=== PATIENT | female | born 1925 | race Caucasian/White ===

== ENCOUNTER 2016-10-28 09:49 | Inpatient (IN) | payer MEDICARE, OTHER ==
[~2016-10-28] VITALS: Ht 157.5 cm; Wt 53.2 kg
[2016-10-28 09:50] VITALS: BP 179/118; PULSE 59; RESP 14; O2SAT 98
--- NOTE | 2016-10-28 09:51 | ED.REPORT ---
HPI-Extremity Problem Lower Date of Service Oct 28, 2016 ED Provider: Dr. Wong Pt is an 89 year old female with a hx of acid reflux, anemia, afib, spinal stenosis and PE presenting to the ED via EMS complaining of 10/10 right hip pain after falling in the shower just prior to arrival. Denies any head injury, LOC, abdominal pain, or any other symptoms at this time. She states that she had a fall a few days ago, and had an x ray that did not show any fracture. Nursing Notes Stated Complaint: HIP PAIN Chief Complaint: Extremity Trauma Nursing Notes Reviewed: Yes Allergies: Coded Allergies: phenytoin (Unverified Allergy, Mild, Unknown, 10/28/16) levetiracetam (Unverified Allergy, Unknown, Unknown, 10/28/16) metronidazole (Unverified Allergy, Unknown, Unknown, 10/28/16) General Time Seen by MD: 09:51 Chief Complaint Hip injury right Hx Obtained From: Patient, EMS Arrived By: Ambulance Onset Occurred: Just prior to arrival Symptom Duration: Since onset Caused by: Fall on ground, Slipped Location: : Hip right Quality: Painful Severity: Current: Pain level 10 out of 10 Severity: Maximum: Severe Associated with: Denies: Abdominal pain Recent Healthcare: No recent hospitalization, Recent doctor visit Similar Sx Previous: Yes Past Medical History Past Medical History acid reflux, anemia, on a Fentanyl patch, Spinal stenosis, PE, afib, ulcerative colitis Past Surgical History denies Smoking History Unknown if Ever Smoker Social History Other Social History: Lives in [facility] Ambulatory Status Independent Review of Systems Constitutional: Denies: Weakness - generalized Musculoskeletal: Reports: Joint pain (Right hip) Neurologic: Denies: Change LOC, Headache Complete sys rev & neg: except as marked. Respiratory: Denies: Shortness of breath Cardiovascular: Denies: Chest pain GI: Denies: Abdominal pain Physical Exam Initial Vital Signs Vital Signs (First) Date Time Temp Pulse Resp B/P Pulse Ox O2 Delivery O2 Flow Rate FiO2 10/28/16 09:50 36.5 59 14 179/118 98 Room Air Initial VS: Reviewed General/Constitutional: Well-developed, Well-nourished Head / Eyes: Atraumatic, Normocephalic, PERRL ENT: Mucous membranes moist, Conjunctiva normal, No scleral icterus Respiratory: Breath sounds normal, Clear to auscultation, No respiratory distress Cardiovascular: Regular rate & rhythm, Heart sounds normal, Intact distal pulses Abdomen / GI: Soft, Non-tender, No guarding, No rebound, No distention Upper Extremities: Vascular intact, Neuro intact, No swelling, No tenderness Skin: Warm, Dry, No cyanosis Neurologic: Alert, Oriented, Nonfocal Psychiatric: Mood/affect normal, Behavior normal, Normal thought content Lower Extremity / Pelvis / MS: Neurologic intact, Vascular intact Right hip tenderness with axial rotation. 2+ dorsalis pedis pulses. Right leg shortened and flexed. Interpretation & Diagnostics Lab Results Interpretation Result Diagram: 10/28/16 1200 10/28/16 1200 Test 10/28/16 12:00 10/28/16 12:50 White Blood Count 6.0th/mm3 (3.8-10.1) Red Blood Count 3.59mil/mm3 (3.90-5.20) Hemoglobin 11.4g/dL (12.0-15.6) Hematocrit 34.5% (35.0-46.0) Mean Corpuscular Volume 96.1fL (81-100) Mean Corpuscular Hemoglobin 31.8pg (27.0-35.0) Mean Corpuscular Hemoglobin Concent 33.0% (32.0-37.0) Red Cell Distribution Width 16.9% (12.3-15.4) Platelet Count 255bil/L (150-400) Neutrophils (%) (Auto) 79.1% (40-74) Lymphocytes (%) (Auto) 9.4% (14-46) Monocytes (%) (Auto) 9.8% (4-12) Eosinophils (%) (Auto) 1.0% (0-5) Basophils (%) (Auto) 0.7% (0-3) Sodium Level 139mEq/L (134-144) Potassium Level 4.5mEq/L (3.5-5.2) Chloride Level 106mEq/L (97-108) Carbon Dioxide Level 20mmol/L (18-29) Blood Urea Nitrogen 17mg/dL (8-27) Creatinine 0.74mg/dL (0.57-1.00) Estimat Glomerular Filtration Rate 106mL/min (>59) Glucose Level 116mg/dL (60-99) Calcium Level 9.4mg/dL (8.5-10.1) Total Bilirubin 0.6mg/dL (0.0-1.2) Aspartate Amino Transf (AST/SGOT) 17U/L (0-50) Alanine Aminotransferase (ALT/SGPT) 11U/L (0-32) Alkaline Phosphatase 71U/L (25-165) Total Protein 6.1g/dL (6.4-8.4) Albumin 3.1g/dL (3.4-5.0) ECG Interpretation Time: 13:03 Interpreted by: ED physician Normal ECG Interpretation: Normal ECG w/ rate of... (63), Normal sinus rhythm X-Ray Chest Interpretation Chest Xray Interpretation: IMPRESSION: 2 cm, poorly defined rounded opacity projecting in the right lung base, indeterminate. Recommend PA and lateral chest radiographs to assess the possibility of pulmonary nodule, when clinically feasible, or at clinical discretion, noncontrast chest CT could be performed. Dictated by: Vinnie Moon M.D. on 10/28/2016 at 11:32 IMPRESSION: Small area of atelectasis or infiltrate in the right lower lobe medially. Lungs otherwise clear. Dictated by: Amado Melendrez M.D. on 10/28/2016 at 12:07 View: Portable, 1 view Interpretation / Wet Read by: Interpret - Radiologist X-Ray Interpretation Xray Interpretation: XRAY PELVIS WITH LATERAL HIP: IMPRESSION: Acute right hip fracture, intertrochanteric. Dictated by: Jorge Rey M.D. on 10/28/2016 at 11:35 X-Ray Ordered: Pelvis, Hip right Interpretation / Wet Read by: Interpret - Radiologist Re-Eval/Medical Decision Med Decision/Clinical Course Right intertrochanteric femur fracture. Will be admitted. Re-Evaluation/Progress : Time of Eval: 11:38 Patient Status: Condition improved Re-Evaluation/Progress Note: Discussed radiology results and plan for admission and surgery. Pt understands and agrees with plan. Consultation #1: Referral / Consult Name: Elroy Finney MD Consulted With: Orthopedic Call Returned at: 12:15 [employer] Consultant: Agrees with plan Note: NPO after midnight. Consultation #2: Referral / Consult Name: Rodney Higuera MD Consulted With: Hospitalist Call Returned at: 12:37 [employer] Consultant: Will see patient, Agrees with plan, Accepts admit Counseled Regarding: Diagnosis, Lab results, Need for follow-up, When/why to return to ED Discharge & Departure Impression: Primary Impression: Hip fracture, right Encounter type: initial encounter Fracture type: closed Qualified Code: S72.001A - Fracture of unspecified part of neck of right femur, initial encounter for closed fracture Disposition: ADMITTED TO HOSPITAL Discharge Condition All VS Reviewed: Yes Condition: Improved Referrals: Darya Baker (PCP) Teoibcele Attestation Portions of this note were transcribed by Melly Valdez. I, Dr. Wong personally performed the history, physical exam and medical decision-making; I reviewed and confirmed the accuracy of the information in the transcribed note. Signed by: Dell Campos, 10/28/16 at 1300. copies to: Darya Baker Timothy S DO Oct 28, 2016 09:51 MELLY VALDEZ Oct 28, 2016 09:59
--- NOTE | 2016-10-28 11:37 | DRSVH ---
PROCEDURE: X-RAY PELVIS W/LAT HIP (RT) ([id number]) INDICATIONS: fall, hip pain TECHNIQUE: AP pelvis with lateral view(s) of the right hip. COMPARISON: None. FINDINGS: Bones: No dislocations. Pelvic ring appears intact. No suspicious bony lesions. There is an acute appearing intertrochanteric right hip fracture Soft tissues: The visualized bowel gas pattern is normal. No suspicious soft tissue calcifications. IMPRESSION: Acute right hip fracture, intertrochanteric. Dictated by: Jorge Rey M.D. on 10/28/2016 at 11:35 Approved by: Jorge Rey M.D. on 10/28/2016 at 11:36
--- NOTE | 2016-10-28 11:39 | DRSVH ---
PROCEDURE: X-RAY CHEST ONE VIEW ([id number]) INDICATIONS: FELL TODAY; HIP FRACTURE PREOPERATIVE TECHNIQUE: One view of the chest was acquired. COMPARISON: [facility], CR, XR CHEST 2V AP/PA AND LAT, 02/20/2016, 5:54 PM. FINDINGS: Surgical changes and devices: None. Lungs and pleura: No pleural effusions or pneumothorax. 2 cm rounded opacity projects in the right l michael base, indeterminate. Mild scarring/atelectasis. Mediastinum: Mediastinal contours appear normal. Heart size is normal. Bones and chest wall: No suspicious bony lesions. Levocurvature of the spine. Overlying soft tissue s appear unremarkable. IMPRESSION: 2 cm, poorly defined rounded opacity projecting in the right lung base, indeterminate. Re commend PA and lateral chest radiographs to assess the possibility of pulmonary nodule, when clinical ly feasible, or at clinical discretion, noncontrast chest CT could be performed. Dictated by: Vinnie Moon M.D. on 10/28/2016 at 11:32 Approved by: Vinnie Moon M.D. on 10/28/2016 at 11:37
--- NOTE | 2016-10-28 12:12 | DRSVH ---
PROCEDURE: X-RAY CHEST ONE VIEW, PORTABLE ([id number]) INDICATIONS: preop TECHNIQUE: One view of the chest was acquired.-1138 hrs. COMPARISON: 10/28/2016-1117 hrs.; Chest 02/20/2016 FINDINGS: Surgical changes and devices: None. Lungs and pleura: No pleural effusions or pneumothorax. Small area of pulmonary density at the right base medially is unchanged. There may be minimal fluid along the right major fissure versus skinfold . Mediastinum: Mediastinal contours appear normal. Heart size is normal. Tortuous aorta. Bones and chest wall: No suspicious bony lesions. Overlying soft tissues appear unremarkable. IMPRESSION: Small area of atelectasis or infiltrate in the right lower lobe medially. Lungs otherwise clear. Dictated by: Amado Melendrez M.D. on 10/28/2016 at 12:07 Approved by: Amado Melendrez M.D. on 10/28/2016 at 12:10
[2016-10-28 12:13] LABS: BASOPHILS % (AUTO) 0.7 % (0-3); MONOCYTES % (AUTO) 9.8 % (4-12); Mean Corpuscular Hemoglobin 31.8 pg (27.0-35.0); Mean Corpuscular Volume 96.1 fL (81-100); NEUTROPHILS % (AUTO) 79.1 % (40-74); Platelet Count 255 bil/L (150-400)
[2016-10-28] MEDS ORDERED: Heparin 5,000 Unit/mL Inj SUBQ ONE (12:40)
[2016-10-28] MEDS ORDERED: Polyethylene Glycol (PEG) 17 Gm Powder PO PRN (12:40)
[2016-10-28] MEDS ORDERED: Alum-Mag Hydrox-Simeth 30 mL Suspension PO PRN ×2 (12:40→12:50)
[2016-10-28] MEDS ORDERED: Ondansetron 2 mg/mL 2 mL Inj IVPUSH PRN ×2 (12:40→12:50)
[2016-10-28 12:56] VITALS: BP 138/91; PULSE 88; RESP 16; O2SAT 99
--- NOTE | 2016-10-28 13:08 | DRSVH ---
PROCEDURE: X-RAY RIGHT FEMUR, TWO VIEWS ([id number]) INDICATIONS: preop ap/lat femur, ap hip TECHNIQUE: 3 views of the femur were acquired. COMPARISON: Pelvis and right hip 10/28/2016-T11 04 hours FINDINGS: Bones: Intertrochanteric fracture of the right hip with varus angulation deformity is again noted. Sh aft of the femur is intact distally. Proximal tibia and fibula as seen appear intact. Soft tissues: No suspicious soft tissue calcifications or masses. IMPRESSION: Acute right hip fracture. Distal shaft is intact. Dictated by: Amado Melendrez M.D. on 10/28/2016 at 13:04 Approved by: Amado Melendrez M.D. on 10/28/2016 at 13:06
[2016-10-28] MEDS ORDERED: AZTH50T PO (13:12)
[2016-10-28] MEDS ORDERED: FENT1PAT6 TRANSDERM (13:12)
[2016-10-28] MEDS ORDERED: OMEP20CA11 PO (13:13)
[2016-10-28] MEDS ORDERED: VIT1CAPS46 PO (13:14)
[2016-10-28] MEDS ORDERED: CHOL200047 PO (13:15)
[2016-10-28] MEDS ORDERED: FEG324 PO (13:17)
[2016-10-28 13:18] LABS: APPEARANCE,URINE HAZY (CLEAR,HAZY); COLOR,URINE STRAW (YELLOW); OCCULT BLOOD,URINE SMALL (NEGATIVE); PH,URINE 7.5 (5.0-8.0)
[2016-10-28 13:19] LABS: UROBILINOGEN,URINE NORMAL (NORMAL)
[2016-10-28] MEDS ORDERED: BIFI4CAP PO (13:21)
[2016-10-28] MEDS ORDERED: LOPE2CAP PO (13:23)
[2016-10-28] MEDS ORDERED: CLOT15CR5 TOPICAL (13:23)
[2016-10-28] MEDS ORDERED: ACET325C PO (13:24)
[2016-10-28] MEDS ORDERED: TETR15DR77 OP (13:28)
[2016-10-28] MEDS ORDERED: VEDO300V IV (13:29)
[2016-10-28 13:35] VITALS: BP 138/91; PULSE 88; RESP 16; O2SAT 99
[2016-10-28 13:57] VITALS: BP 164/62; PULSE 80; RESP 18; O2SAT 94
--- NOTE | 2016-10-28 14:03 | NUR ---
Admit To [facility] via stretcher from ER at 13:35. Report received from Jody. Alert and oriented x3. Family at bedside. R leg shorted and turned out, see ortho checks. Denies pain at rest, but 3/10 on FELDT scale with movement. Admit nurse at bedside completing admit, including med rec.
[2016-10-28] MEDS: fentaNYL-PF 50 mCg/mL 2 mL Inj IV PRN ×2 (14:23→22:35)
[2016-10-28] MEDS: D5 0.45% NaCl + KCl 20 mEq/L 1,000 ML IV SCH (14:47)
[2016-10-28 14:52] VITALS: PULSE 83
--- NOTE | 2016-10-28 15:31 | NUR ---
Evaluation completed. Please go to "Notes" then click on "Assessments and Notes" (bottom left corner of screen). Then select appropriate discipline tab on top of screen.
[2016-10-28] MEDS ORDERED: [UNRECOGNIZED DRUG - REMARK] SCH (15:55)
[2016-10-28] MEDS ORDERED: Betameth Dip-Clotrimazole 15 Gm Cream TOPICAL PRN (15:55)
[2016-10-28] MEDS: Lactobacillus Rhamnosus 10 Bil Unit Capsule PO SCH (16:57)
[2016-10-28] MEDS: Acetaminophen IV 1,000 MG in IV Premix 1 EACH IV PRN ×2 (16:58→23:52)
--- NOTE | 2016-10-28 17:00 | PCM.HPMED ---
Subjective Date of Service Oct 28, 2016 Primary Provider: Admitting Physician: Rodney Higuera MD Primary Care Physician: Hakeem Carcamo MD Attending Physician: Rodney Higuera MD Admit Status: From the Emergency Department, Admit to Red Team Chief Complaint: Right hip pain History of Present Illness: The patient is a very pleasant 89-year-old white female with history of gastroesophageal reflux, ulcerative colitis with history of GI bleed on warfarin which was prescribed for bilateral pulmonary emboli in the past. Patient completed 6 months of treatment with warfarin. She was in her usual state of health living at the [facility] when she fell in the bathroom. She apparently was getting her weekly shower and then she said she was on the toilet after getting up from the toilet she turned and then fell onto the floor. She complained of severe pain in her right hip and was brought to [facility] emergency room where she was evaluated by Dr. Rustam Galeas. Patient was found to have an intertrochanteric right hip fracture and Dr. Wong called Dr. Finney the orthopedic surgeon rent control office manager who recommended that the patient be admitted to the hospitalist service and that she would operate on the patient in the morning. Patient was therefore admitted to the hospital service for further evaluation and treatment. Review of Systems: General: Patient is comfortable when lying still. However, with any movement she experiences severe pain in her right hip. HEENT: Patient has no headache, patient has no diplopia, patient has no changes in vision. Patient has no problems with her ears, nose or throat. Patient has no pharyngitis or history of thrush. Patient has her own teeth and has no dental problems. Neck: Patient has no stiffness in the neck. Patient has no lymphadenopathy. Patient has no other problems with their neck. Pulmonary: Patient has no shortness of breath, no cough, no expectoration of sputum. Patient has no pleurisy. Patient has no chest pain. Patient has no history of asthma or COPD. however, patient had pulmonary emboli after being diagnosed with ulcerative colitis which caused her to be more sedentary. 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 Prior to the pulmonary emboli a few years ago she was very independent and very active. Cardiovascular: Patient has no chest pain. Patient has no history of heart murmur. Patient has no palpitations. Patient has no history of myocardial infarction. Patient has no history of coronary artery disease. Patient has never had atrial fibrillation which her medical record suggests. Her daughter a few would like the history of A. fib removed from her medical record as she has never had atrial fibrillation. Gastrointestinal: Patient has no history of hepatitis A, B or C per recent testing. However she does remember having jaundice in the past and in talking to her and the patient's daughter Gardenia thought that maybe she did have hepatitis A in the past. In any event patient has had vaccinations for hepatitis A I will updated due to her use of Remicade in the past. Patient has no history of peptic ulcer disease. Patient has history of gastroesophageal reflux disease. Patient has no history of nausea, vomiting, or diarrhea. Patient has a history of ulcerative colitis diagnosed approximately 2 years ago and she is currently being treated by Dr. Bocanegra(sp?) A hematology technologist in [place], [place]. She has been on multiple "expensive" medications and according to her daughter has failed Remicade and is now doing well on and Entyvio. Patient had a GI bleed when she was on Coumadin for pulmonary emboli. Renal: Patient has no history of kidney disease. No history of kidney stones. Genitourinary: Patient has no history of dysuria or incontinence, however she does have frequency with nocturia sometimes as much as 5 times at night. Patient has no previous history of genitourinary problems. Musculoskeletal: Patient has no history of muscular skeletal problems. Neurologic: Patient has no history of stroke, no history of seizure, no history of TIA. Psychiatric: Patient has no history of psychiatric problems. The remainder of the entire review of systems was reviewed with patient and is as mentioned above otherwise negative. Allergies Coded Allergies: phenytoin (Unverified Allergy, Mild, Unknown, 10/28/16) levetiracetam (Unverified Allergy, Unknown, Unknown, 10/28/16) metronidazole (Unverified Allergy, Unknown, Unknown, 10/28/16) Home Medications Entyvio 300 mg IV every 8 weeks Azathioprine 150 mg by mouth daily Tylenol when necessary Align probiotics by mouth daily Vitamin D by mouth daily PreserVision vitamin by mouth daily Omeprazole 20 mg by mouth daily Fentanyl patch 4.5 g transdermal every 72 hours PMH Gastroesophageal reflux disease Ulcerative colitis diagnosed approximately 2 years ago which was quite debilitating and caused her to be more sedentary Pulmonary emboli after ulcerative colitis diagnosis which was bilateral and severely disabling with a long recovery. 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 History of lumbar vertebral fracture with possible spinal stenosis and chronic pain treated with a fentanyl patch Patient and daughter Tangela denied that the patient has ever had atrial fibrillation Patient had sepsis in February 2016 secondary to urinary tract infection and was hospitalized for 5 days at another hospital. Patient had a history of C. difficile colitis 5 years ago. Patient believes she had hepatitis possibly from hepatitis A but tested negative prior to receiving Remicade and received vaccines for hepatitis prior to his receiving Remicade. History of GI bleeding on warfarin which was being given for bilateral pulmonary emboli. Osteoporosis. Surgical History Bilateral cataract surgery with lens replacement. 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 Patient had a broken collarbone but does not believe that it was operated on Family History Patient's father of a "heart attack" in his 70s Patient's mother in her 70s as well she had multiple medical problems which included multiple strokes, epilepsy and asthma Patient had 3 brothers. One is still alive and well, one of an ear infection which led to meningitis, one unknown causes. Patient had 3 sisters. One of pulmonary emboli and one of cancer and the other is alive and presumably well. Patient had 4 children and her fourth was a boy who committed suicide at the age of 46. Social History Hx Alcohol Use: Yes (The patient used to like to drink a glass of wine now and then. However, she quit when she was diagnosed with ulcerative colitis.) Hx Substance Use: No Hx Tobacco Use: Yes Smoking Status: Former Smoker (The patient used to smoke 2-3 cigarettes a day but quit in the 1970s.) Living Arrangement: Custodial (The patient lives at [facility]) Exam Vital Signs Vital Sign - Last Date Time Temp Pulse Resp B/P Pulse Ox O2 Delivery O2 Flow Rate FiO2 10/28/16 14:55 Supplement Oxygen 10/28/16 14:52 83 10/28/16 13:57 36.7 18 164/62 94 Exam General: Patient is in no distress when she is lying still. However with any movement she has excruciating pain in her right hip. HEENT: Head is atraumatic and normocephalic. Eyes: Pupils are equally round and reactive to light and accommodation. Extraocular muscles are intact. Sclera are white, anicteric. Subconjunctival mucosa is pink. Ears and nose are unremarkable. Oropharynx: There is no mucosal lesions, there is no thrush, there is no pharyngitis. Oral mucosa is dry. Neck: Is supple, there are no nodes, or masses or tenderness. Chest: Is clear to auscultation and percussion. There are no rales, rhonchi, wheezes or rubs. Heart: Rate, rhythm is regular. There is no murmur, rub or gallop. Abdomen: Good bowel sounds are present. Abdomen is soft, nontender, no organomegaly or masses were appreciated. Extremities: Are symmetrical and well perfused. There is no edema, there is no cellulitis, no rash. Range of motion was not tested in fact patient did not even want me to remove her sock on her right foot as it was too painful to even move her foot that much causing pain in her right hip. Neurologic: There are no apparent focal neurological deficits. However, right lower extremity neurologic assessment could not be performed due to patient's pain with any movement. Cranial nerves II through XII are intact. There are no apparent sensory or motor deficits. Psychiatric: Patients mood is calm and shows no sign of agitation. Genital: Deferred Rectal: Deferred Lab and Diagnostics Result Diagram: 10/28/16 1200 10/28/16 1200 X-Rays, CTs and MRIs PROCEDURE: X-RAY RIGHT FEMUR, TWO VIEWS ([id number]) INDICATIONS: preop ap/lat femur, ap hip TECHNIQUE: 3 views of the femur were acquired. COMPARISON: Pelvis and right hip 10/28/2016-T11 04 hours FINDINGS: Bones: Intertrochanteric fracture of the right hip with varus angulation deformity is again noted. Shaft of the femur is intact distally. Proximal tibia and fibula as seen appear intact. Soft tissues: No suspicious soft tissue calcifications or masses. IMPRESSION: Acute right hip fracture. Distal shaft is intact. Dictated by: Amado Melendrez M.D. on 10/28/2016 at 13:04 Approved by: Amado Melendrez M.D. on 10/28/2016 at 13:06 PROCEDURE: X-RAY CHEST ONE VIEW, PORTABLE ([id number]) INDICATIONS: preop TECHNIQUE: One view of the chest was acquired.-1138 hrs. COMPARISON: 10/28/2016-1117 hrs.; Chest 02/20/2016 FINDINGS: Surgical changes and devices: None. Lungs and pleura: No pleural effusions or pneumothorax. Small area of pulmonary density at the right base medially is unchanged. There may be minimal fluid along the right major fissure versus skinfold. Mediastinum: Mediastinal contours appear normal. Heart size is normal. Tortuous aorta. Bones and chest wall: No suspicious bony lesions. Overlying soft tissues appear unremarkable. IMPRESSION: Small area of atelectasis or infiltrate in the right lower lobe medially. Lungs otherwise clear. Dictated by: Amado Melendrez M.D. on 10/28/2016 at 12:07 Approved by: Amado Melendrez M.D. on 10/28/2016 at 12:10 PROCEDURE: X-RAY PELVIS W/LAT HIP (RT) ([id number]) INDICATIONS: fall, hip pain TECHNIQUE: AP pelvis with lateral view(s) of the right hip. COMPARISON: None. FINDINGS: Bones: No dislocations. Pelvic ring appears intact. No suspicious bony lesions. There is an acute appearing intertrochanteric right hip fracture Soft tissues: The visualized bowel gas pattern is normal. No suspicious soft tissue calcifications. IMPRESSION: Acute right hip fracture, intertrochanteric. Dictated by: Jorge Rey M.D. on 10/28/2016 at 11:35 Approved by: Jorge Rey M.D. on 10/28/2016 at 11:36 Assessment & Plan The patient is a very pleasant 89-year-old white female with history of gastroesophageal reflux, ulcerative colitis with history of GI bleed on warfarin which was prescribed for bilateral pulmonary emboli in the past. Patient completed 6 months of treatment with warfarin. She was in her usual state of health living at the [facility] adult home when she fell in the bathroom. She apparently was getting her weekly shower and then she said she was on the toilet after getting up from the toilet she turned and then fell onto the floor. She complained of severe pain in her right hip and was brought to [facility] emergency room where she was evaluated by Dr. Rustam Galeas. Patient was found to have an intertrochanteric right hip fracture and Dr. Wong called Dr. Finney the orthopedic surgeon rent control office manager who recommended that the patient be admitted to the hospitalist service and that she would operate on the patient in the morning. Patient was therefore admitted to the hospital service for further evaluation and treatment. # Right hip fracture, present at the time of admission. Active - Dr. Finney of orthopedic surgery has been contacted by Dr. Patrick Wong and stated that she would operate on the patient in a.m. and to make the patient nothing by mouth after midnight. - Pain control with fentanyl or morphine and Tylenol as needed. - The patient has never had atrial fibrillation and this should be removed from her record according to her 2 daughters. In fact she has never had any cardiac problems in the past. - Bedrest until surgery. Then after surgery I have ordered a consult to physical therapy, occupational therapy and speech therapy for their evaluation and treatment recommendations. # Ulcerative colitis, present at the time of admission. Active but stable - Continue azathioprine - Continue Entyvio as an outpatient - Continue probiotics # History gastroesophageal reflux disease, present times admission. Stable - Continue proton pump inhibitor - Close observation # History of pulmonary emboli status post treatment with warfarin for 6 months - We will give 1 dose of heparin this afternoon preoperatively. - Postoperatively DVT prophylaxis will be per orthopedic surgery. - Of note patient had a GI bleed on warfarin. However, her ulcerative colitis was not controlled at that time. Now her ulcerative colitis appears to be well controlled with Entyvia. Disposition: As patient will be admitted for more than 2 midnight for the evaluation and treatment of the above conditions, patient was admitted as an inpatient. Pain Evaluation: Adequate Pain Control GI Prophylaxis: Proton Pump Inhibitor VTE Prophylaxis: Sub-Q Heparin (Unfractionated) VTE Mechanical Devices: Intermittant Pneumatic CD Resuscitation Status: CPR: Attempt Resuscitation DavidaRodney MD Oct 28, 2016 17:00
[2016-10-28 20:00] VITALS: BP 100/55; PULSE 75; PULSE 79; RESP 17; O2SAT 94
[2016-10-29] VITALS (14 sets, daily range): BP systolic 110–178; BP diastolic 60–80; PULSE 54–84; RESP 12–20; O2SAT 92–99
--- NOTE | 2016-10-29 01:42 | NUR ---
Activity/Pain Patient rating pain to right hip a 5/10 at beginning of shift. Stated this was tolerable and refused offer for pain medications. Pt being repositioned in bed [id number]. Notable increase in pain level with latest repositioning, rating pain to hip a 10/10. Fentanyl 50 mcg IVP given with somewhat effective results. Rated pain 8/10 with reassessment. IV Acetaminophen given with effective results, noted to be resting with eyes closed upon reassessment. Made NPO at midnight in preparation of surgery.
--- NOTE | 2016-10-29 02:51 | CONS ---
[address] [address] CONSULTATION REPORT PATIENT: MERRY TRAN : 1925 MR#: [id number] ADMIT: 10/28/2016 JOB ID: [id number] DATE OF SERVICE: ORTHOPEDIC INPATIENT CONSULTATION: CPT code 70959-90, decision for surgery. CHIEF COMPLAINT: This is an 89-year-old female who lives at an adult family home, tripped and fell in the bathroom sustaining a right intertrochanteric femoral fracture. The patient was on the toilet, getting up from the toilet she turned and fell on the floor. There was no obvious loss of consciousness. ALLERGIES: 1. DILANTIN. 2. METRONIDAZOLE. 3. LEVETIRACETAM. CURRENT MEDICATIONS: Include: Entyvio, azathioprine, Tylenol, vitamin D, PreserVision, omeprazole and fentanyl patch. PAST MEDICAL HISTORY: Positive for gastroesophageal reflux, prior pulmonary emboli after ulcerative colitis diagnosis and prolonged recovery, history of some senile dementia. Prior history of GI bleeding while on Coumadin in the past. PRIOR SURGERY: Bilateral cataract surgeries, appendectomy, total abdominal hysterectomy, vaginal floor repair, right long finger tip amputation, right clavicle fracture. FAMILY HISTORY: Positive for MS, strokes and epilepsy. SOCIAL HISTORY: The patient used to drink occasionally, however, she no longer drinks. Former smoker, quit in the . REVIEW OF SYSTEMS: Is pertinent at this time for pain in the right hip status post fall. PHYSICAL EXAMINATION: A 157 cm, 51 kg female. Temperature is 36.4, pulse of 79, respirations 17, blood pressure 100/55. Patient is lying in bed. She does have some senile dementia and short-term memory loss. She is, however, able to carry on a conversation. Right leg is shortened and externally rotated. Peripheral pulses are intact. The patient is able to move her foot. The patient is thin. No abrasions over the hip. LABORATORY TESTING: Shows hematocrit of 34.5, hemoglobin 11.4, white count 6000, platelet count adequate at 255,000; 79.1% PMNs. Sodium 139, potassium 4.5, chloride 106, CO2 20, BUN 17, creatinine 0.74. Glucose random at 116. Total protein low at 6.1. Albumin low at 3.1. Urinalysis: Specific gravity of 1.015, pH of 7.5; 0-5 white cells and no bacteria seen. X-rays show that she has a displaced right intertrochanteric femoral fracture with a slight area of comminution of the tip of the greater trochanter. X-rays were also ordered down to the knee and there were no other fractures or abnormalities noted distally. IMPRESSION: Displaced right intertrochanteric femoral fracture. PLAN: The patient will be scheduled for open reduction and internal fixation of the fracture. I have discussed the risks and benefits of surgery with the daughter who has power of health care attorney. She is aware of the risks for bleeding, infection, pain and stiffness, possibility for damage to surrounding neurovascular structures, potential for delayed union, nonunion, malunion, and hardware failure. Daughter will need to sign surgical consent tomorrow and she will also need to sign anesthesia consent. Dr. Lucius Cuellar is going to be covering tomorrow and he will plan to speak with the daughter and plan for surgical intervention tomorrow with an IM alfreda for the hip fracture. I have indicated to the daughter if she has any further questions she should contact one of the nurses and I would be more than happy to answer any questions, or Dr. Cuellar could answer questions tomorrow.
[2016-10-29] MEDS: fentaNYL-PF 50 mCg/mL 2 mL Inj IV PRN ×2 (03:50→13:53)
[2016-10-29] MEDS: D5 0.45% NaCl + KCl 20 mEq/L 1,000 ML IV SCH ×2 (03:55→15:20)
[2016-10-29] MEDS: Pantoprazole 20 mg ER24 Tablet PO SCH (05:37)
[2016-10-29] MEDS: Acetaminophen IV 1,000 MG in IV Premix 1 EACH IV PRN (06:23)
[2016-10-29] MEDS: Lactobacillus Rhamnosus 10 Bil Unit Capsule PO SCH (08:30)
[2016-10-29] MEDS ORDERED: Phenylephrine 10,000 mCg/mL Inj ONE (09:13)
[2016-10-29] MEDS ORDERED: Ondansetron 2 mg/mL 2 mL Inj ONE (09:13)
[2016-10-29] MEDS ORDERED: Ketamine 10 mg/mL 20 mL Inj ONE (09:13)
[2016-10-29 09:34] LABS: INR 1.03 ratio
--- NOTE | 2016-10-29 09:50 | PCM.HPANE ---
Patient Data Surgeon Admitting Provider:Rodney Higuera MD Attending Provider:Rodney Higuera MD Primary Care Physician:Hakeem Carcamo MD Other Provider: Reason for Visit Right Hip Fx RIGHT HIP FX Ht/WT & BMI Height (Feet): 5 Height (Inches): 2.00 Weight (Kilograms): 53.300 Body Mass Index 20.98 Allergies Coded Allergies: phenytoin (Unverified Allergy, Mild, Unknown, 10/28/16) levetiracetam (Unverified Allergy, Unknown, Unknown, 10/28/16) metronidazole (Unverified Allergy, Unknown, Unknown, 10/28/16) Past Anesthesia History Anesthesia History: Denies:: Abnormal Airway, Anesthesia Reactions, Difficult Intubation Diabetes History Hx Diabetes?: No Current Bedside Blood Glucose: 127 MRSA MRSA: No Medications Hypertension Medication: No Home Meds Incl Beta Madhav: No Reported Medications Vedolizumab (Entyvio)300 Mg [id number] Mg IV Every 8 weeks 10/28/16 Tetrahydrozoline HCl/Zn Sulf (Visine Allergy Relief Drop)15 Ml Drops15 Ml OP DAILY dry eye 10/28/16 Acetaminophen 325 Mg [id number] Mg PO Q8 hr. PRN For Pain 10/28/16 Loperamide 2 Mg Capsule2 Mg PO Q4H PRN For Diarrhea or Loose Stool 10/28/16 Clotrimazole/Betamethasone Dip (Lotrisone)15 Gm Cream..g.15 Gm TOPICAL BID PRN For Itching 10/28/16 Bifidobacterium Infantis (Align)4 Mg Capsule4 Mg PO DAILY 10/28/16 Ferrous Gluconate 324 Mg Erq265 Mg PO DAILY Ref 0 10/28/16 Cholecalciferol (Vitamin D3) (Vitamin D3)2,000 Unit Capsule2,000 Unit PO DAILY 10/28/16 Vit C/E/Zn/Coppr/Lutein/Zeaxan (Preservision Areds 2 Softgel)1 Each Capsule1 Each PO 10/28/16 Omeprazole 20 Mg Capsule.dr20 Mg PO DAILY Ref 0 10/28/16 Fentanyl 12.5 mcg/hr Patch 1 Each Patch.td721 Patch TRANSDERM Q3D Ref 0 10/28/16 Azathioprine 50 Mg [id number] Mg PO DAILY Ref 0 10/28/16 History History of ENT Problems?: No HEENT History: Denies:: Abnormal Airway Difficult Intubation Denture Type: None Teeth Condition: Within Normal Limits Tooth Decay Hx of Heart Problems?: No Cardiovascular History: Positive for:: Hypertension (no meds) Denies:: Congestive Heart Failure Hx of Respiratory Problem?: Yes Respiratory History: Denies:: Asthma COPD Chest Surgery Dyspnea Emphysema Hemoptysis Pneumonia Tuberculosis Other Resp Pertinent History: hx of PE in 2015. 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 Hx Musculoskeletal Problems?: Yes Musculoskeletal History: Positive for:: Musculoskeletal Trauma (Current broken hip. Hx broken collar bone.) Denies:: Back Injury Joint Replacement Hx of Psycho/Social Problems?: No Hx Surgeries?: No Hx Any Other Health Problems?: Yes Other History: Positive for:: Hospitalization (GI bleed ) Denies:: Cancer Thyroid Disease History Blood Transfusions: Positive for:: Accept Blood Products? Denies:: Blood Transfuse Reaction Blood Transfusions Hx Diabetes: NoBedside Blood Glucose: 127 Hx Alcohol Use: Yes (The patient used to like to drink a glass of wine now and then. However, she quit when she was diagnosed with ulcerative colitis.)Hx Substance Use: No Smoking Status: Former Smoker (The patient used to smoke 2-3 cigarettes a day but quit in the .) Stop/Bang Treated for Sleep Apnea?: No Do You Have a CPAP Machine?: No S-Snoring: Do You Snore Loudly: No O-Obsered: Observed not breath: No P-Blood Pressure: treated: Yes B- Body Mass Index > 35 kg/m2: No A- Age over 50: Yes N- Neck Large Circumference: No G- Gender Male: No GAVIN Risk Assessment: Low Risk, <3 Yes Risk Assessment Category Category 1A: Patient has history of documented sleep apnea, and HAS NOT received any narcotic, sedative or anesthesia administration during this stay. Category 1B: Patient has history of documented sleep apnea, and HAS received any narcotic , sedative or anesthesia administration during this stay Category 2: Patient has SUSPECTED Obstructive Sleep Apnea, and HAS received any narcotic , sedative or anesthesia administration during this stay. Category 3: Patient has SUSPECTED Obstructive Sleep Apnea and HAS NOT received narcotic, sedative or anesthesia administration during this stay. Category 4: Outpatient in Procedural Areas with known sleep apnea or who screen positive for High Risk via the STOP/BANG questionnaire. Exam Exam Vital Signs Vital Signs Date Time Temp Pulse Resp B/P Pulse Ox O2 Delivery O2 Flow Rate FiO2 10/29/16 07:54 36.8 73 16 153/67 98 Nasal Cannula 2.00 10/29/16 04:49 36.8 71 16 130/73 98 Nasal Cannula 2.00 10/29/16 04:17 Supplement Oxygen General Appearance: Alert, Oriented X3, Cooperative, No Acute Distress HEENT/AIRWAY: MP 2 Lungs: Clear to Auscultation, Normal Air Movement Heart: Exam Unremarkable, Regular Rate/Rhythm, No Murmurs/Rubs/Gallops Meds/Labs/Diagnostics Admission Meds Current Medications Heparin Sodium (Porcine) 5000 unit 5,000 unit ONCE ONCE SUBQ Last administered on 10/28/16 14:47; Start 10/28/16 at 12:40; Stop 10/28/16 at 13:42 ; Status DC Potassium Chloride/Dextrose/ Sod Cl (Dextrose 5% 0.45% NaCl + KCl 20 mEq/L) 1, 000 ml @ 75 mls/hr [id number] IV Last administered on 10/29/16 03:55; Start 02/04 at 12:40 Fentanyl (Duragesic 12 mCg/Hr Patch) 1 patch Q3D TOPICAL Last administered on 16:55; Start 10/28/16 at 16:00 Lactobacillus Rhamnosus (Culturelle) 1 capsule DAILY PO Last administered on 16:57; Start 10/28/16 at 16:10 Bedside Blood Glucose: 127 Labs Test 10/28/16 12:00 10/28/16 12:50 10/29/16 09:07 White Blood Count 6.0th/mm3 (3.8-10.1) Red Blood Count 3.59mil/mm3 (3.90-5.20) Hemoglobin 11.4g/dL (12.0-15.6) Hematocrit 34.5% (35.0-46.0) Mean Corpuscular Volume 96.1fL (81-100) Mean Corpuscular Hemoglobin 31.8pg (27.0-35.0) Mean Corpuscular Hemoglobin Concent 33.0% (32.0-37.0) Red Cell Distribution Width 16.9% (12.3-15.4) Platelet Count 255bil/L (150-400) Neutrophils (%) (Auto) 79.1% (40-74) Lymphocytes (%) (Auto) 9.4% (14-46) Monocytes (%) (Auto) 9.8% (4-12) Eosinophils (%) (Auto) 1.0% (0-5) Basophils (%) (Auto) 0.7% (0-3) Total Bilirubin 0.6mg/dL (0.0-1.2) Aspartate Amino Transf (AST/SGOT) 17U/L (0-50) Alanine Aminotransferase (ALT/SGPT) 11U/L (0-32) Alkaline Phosphatase 71U/L (25-165) Total Protein 6.1g/dL (6.4-8.4) Albumin 3.1g/dL (3.4-5.0) Hold Lopez Top Tube Received (Received) Urine Color Straw (YELLOW) Urine Appearance Hazy (CLEAR,HAZY) Urine pH 7.5 (5.0-8.0) Urine Specific [place] 1.015 (1.003-1.035) Urine Protein Negativemg/dL (NEG,TRACE) Urine Glucose (UA) Negativemg/dL (NEGATIVE) Urine Ketones Negativemg/dL (NEGATIVE) Urine Occult Blood Small (NEGATIVE) Urine Nitrite Negative (NEGATIVE) Urine Bilirubin Negative (NEGATIVE) Urine Urobilinogen Normalmg/dL (NORMAL) Urine Leukocyte Esterase Negative (NEGATIVE) Urine RBC 3-10/hpf (0-2) Urine WBC 0-5/hpf (0-5) Urine Epithelial Cells Occasional/hpf (NONE-MOD) Urine Crystals None seen (NONE SEEN) Urine Bacteria None/hpf (NONE-FEW) Urine Hyaline Casts None/lpf (NONE) Urine Granular Casts None seen (NONE SEEN) Urine Waxy Casts None seen (NONE SEEN) Urine Red Blood Cell Casts None seen (NONE SEEN) Urine White Blood Cell Casts None seen (NONE SEEN) Urine Mucus None seen (None Seen) Urine Trichomonas None seen (NONE SEEN) Urine Yeast None (NONE SEEN) Urinalysis Comment None Urine Culture Reflexed Not indicated Sodium Level 139mEq/L (134-144) Potassium Level 4.6mEq/L (3.5-5.2) Chloride Level 104mEq/L (97-108) Carbon Dioxide Level 21mmol/L (18-29) Blood Urea Nitrogen 13mg/dL (8-27) Creatinine 0.73mg/dL (0.57-1.00) Estimat Glomerular Filtration Rate 108mL/min (>59) Glucose Level 136mg/dL (60-99) Calcium Level 9.6mg/dL (8.5-10.1) Magnesium Level 2.0mg/dL (1.6-2.6) Plan Impression Patient chart reviewed, patient interviewed and anesthestic plan with risks, benefits, and alternatives discussed, and informed consent obtained. ASA Physical Status: ASA3 Severe Disease (mild dementia) Anesthetic Plan: SAB Bene/Risks/Altern/Consents: Yes HP Complete Prior to Induction: Yes Stephane Brunner MD Oct 29, 2016 09:50
[2016-10-29] MEDS ORDERED: Lactated Ringer's 1,000 ML IV ONE ×2 (09:51→10:40)
--- NOTE | 2016-10-29 09:58 | NUR ---
Off Unit Patient off floor to PACU via bed.
[2016-10-29] MEDS ORDERED: Vancomycin Inj 750 MG in IV Premix 1 EACH IV ONE (10:10)
[2016-10-29] MEDS ORDERED: Vancomycin Inj 750 MG in 0.9% Sodium Chloride 250 ML IV ONE ×2 (10:20→23:00)
[2016-10-29] MEDS ORDERED: Ropivacaine-PF 0.5% 30 mL Inj INFILTRATE ONE (11:20)
[2016-10-29] MEDS ORDERED: Lactated Ringer's 500 ML IV PRN (11:24)
[2016-10-29] MEDS ORDERED: Lactated Ringer's 1,000 ML IV SCH (11:24)
[2016-10-29] MEDS ORDERED: Ondansetron 2 mg/mL 2 mL Inj IVPUSH PRN ×2 (11:25→12:35)
[2016-10-29] MEDS ORDERED: HYDROmorphone 1 mg/mL Inj IVPUSH PRN (11:25)
[2016-10-29] MEDS ORDERED: Phenylephrine 10,000 mCg/mL Inj IVPUSH PRN (11:25)
[2016-10-29] MEDS ORDERED: EPHEDrine Sulfate 50 mg/mL Inj IVPUSH PRN (11:25)
[2016-10-29] MEDS ORDERED: MetoCLOpramide 5 mg/mL 2 mL Inj IVPUSH PRN (11:25)
[2016-10-29] MEDS ORDERED: Dexamethasone 4 mg/mL Inj IVPUSH PRN (11:25)
--- NOTE | 2016-10-29 12:31 | NUR ---
Social Work: Initial Assessment/Multi-Disciplinary Rounds D: EMR reviewed. Pt is an 89 y/o female admitted for right hip fracture per H&P. Pt has a readmit risk score of 2. NAI attempted to meet with pt at bedside to conduct initial assessment but pt was in OR. NAI placed T/C to pt's daughter/DPOA Tangela Patiño [phone] to complete initial assessment. Pt's insurance is Medicare and [employer]. PCP is Flash Nixon MD. Pt does not have VA benefits. Pt has LTC insurance through [employer]. Pt owns and uses a FWW to ambulate. Pt does not own or use any other DME. Pt needs assistance with all ADLs including meal prep, medications, feeding, dressing, toileting, bathing, chores, and transportation. Pt has hx at [facility] in [place] and [facility] in [place]. Pt has hx with [facility] for RN PT OT but is no longer open for these services. Pt does not drive. Pt lives at [facility] where there are no steps to enter and there is wheelchair access. Pt's daughter states that pt receives assistance with all ADLs from attendants at [facility]. Pt's daughter stated she will provide pt transport home - if pt is medically stable to return home - when pt is ready. Pt's daughter stated that surgeon in OR suggested pt will need SNF and if pt needs SNF, daughter will transport if SNF can't provide transport. Per MD in multi-disciplinary rounds, pt is to go to OR today at 1200. Pt likely to stay for 2-3 more days. NAI discussed SNF process with pt's daughter. NAI confirmed that once SW receives MD order to coordinate SNF, SW will work with pt and daughter to provide choicelist and then coordinate SNF. Pt's daughter agreeable. NAI confirmed that pt fell at at [facility] when pt was transferring from toilet to shower for her weekly shower with attendant. Per RCS guidelines, NAI made RCS report for fall at [facility] facility. Pt's daughter stated that pt has improved significantly since staying at [facility]. Pt's daughter stated that pt's memory has declined but this has not been diagnosed or documented. Pt's daughter is impressed with [facility] and does not suspect any negligence from facility resulting in pt's fall. Pt's daughter stated that "the fall was an accident." Pt's daughter stated that while pt's baseline has improved, pt will need to return to [facility] after anticipated rehabilitation at SNF. Pt's daughter states that pt will still need continued assistance with ADLs and does not have he capacity for self-care without assistance. NAI informed daughter that NAI left "Your Discharge Planning Checklist" in pt's room and wrote phone number on white board. NAI encouraged daughter to contact SW with any questions during hospital stay. NAI confirmed NAI will work with MD and OR to determine medical necessity for SNF and follow-up with pt and daughter regarding recommendations. A: Pt who resides at [facility] and needs assistance with all ADLs at baseline. P: Pt anticipated to need a SNF for rehabilitation. NAI made referral to [facility] [[email or web address] for pt's fall at [facility]. NAI discussed SNF process with pt's daughter. SW to work with pt and daughter once MD has ordered SNF. NAI will continue to follow and await MD orders for further discharge planning. HEIDI Nance Addendum: 10/29/16 at 1249 by KALYN CALIXTO SS Amended: Links added. Addendum: 10/29/16 at 1259 by KALYN PIMENTEL NAI made RCS report call to [phone] for "resident or client fall incident." Confirmation #[id number] HEIDI Nance
[2016-10-29] MEDS: 0.9% Sodium Chloride 1,000 ML IV SCH ×2 (12:32→17:19)
[2016-10-29] MEDS ORDERED: Magnesium Hydroxide 10 mL Oral Concentration PO PRN (12:35)
[2016-10-29] MEDS ORDERED: Polyethylene Glycol (PEG) 17 Gm Powder PO PRN (12:35)
[2016-10-29] MEDS ORDERED: Vancomycin Dose per Pharmacist XX ONE (12:35)
[2016-10-29] MEDS ORDERED: diphenhydrAMINE 25 mg Capsule PO PRN (12:35)
[2016-10-29] MEDS: fentaNYL-PF 50 mCg/mL 2 mL Inj IVPUSH PRN ×3 (12:46→13:15)
--- NOTE | 2016-10-29 13:20 | NUR ---
Back on Unit Patient back on floor from PACU in stable condition. VSS. Patient alert to self only. Patient reported 10/10 hip pain and nausea. 50mcg of Fentanyl and 8mg ondansetron given. Dressing CDI. Daughter at bedside. IV fluids started NS@100. Daughter at bedside. Call light and tray table within reach. Will continue to monitor patient hourly.
--- NOTE | 2016-10-29 13:33 | OP ---
[address] [address] OPERATIVE REPORT PATIENT: MERRY TRAN : 1925 MR#: [id number] ADMIT: 10/28/2016 JOB ID: [id number] DATE OF SURGERY: 10/29/2016 SURGEON: Lucius Cuellar DO SURVEY WORKER: Araseli Rutledge PA-C and Faby Simon DO, PGY-I PREOPERATIVE DIAGNOSIS(ES): Right hip intertrochanteric fracture. POSTOPERATIVE DIAGNOSIS(ES): Right hip intertrochanteric fracture. PROCEDURE: Right hip cephalomedullary nailing. INDICATIONS: Patient is an 89-year-old female who fell at her adult longterm yesterday sustaining a right intertrochanteric hip fracture. She was unable to walk after the fall and she normally ambulates with a walker. We discussed treatment options for this and she and her daughter who was the [id number] wished to proceed with a right hip nailing. We discussed the risks, benefits, and possible complications of surgery including, but not limited to injury to nerves and vessels, infection, bleeding, incomplete relief of symptoms, stiffness, need for additional procedures. The patient had good understanding. All questions were answered. She wished to proceed. A nursing surgical services director was required for this procedure. PROCEDURE IN DETAIL: The patient was brought to the operating room. She was given a preoperative antibiotic. We elected to use vancomycin as she has had difficulty with C. diff in the past, and avoid Ancef, and placed comfortably onto the fracture table. The right hip was reduced with a combination of traction and internal rotation. However it would not completely reduce. The hip was then sterilely prepped and draped. An incision was made about three fingerbreadths above the level of the greater trochanter in line with the femur. Dissection was carefully carried through the subcutaneous tissue and down into the iliotibial band and down onto the trochanter. A terminally threaded guide pin was advanced from the tip of the trochanter at the junction of the anterior 1/3 and posterior 2/3 down into the femoral canal. This was over-reamed with the opening reamer and then a 125 degree 12 mm diameter Synthes TFN nail was advanced. Next, an incision was made distally for lag screw placement and I opened this wound a bit further to place a bone hook anteriorly over the femur in order to reduce the calcar fracture fragment down onto the shaft. This reduced quite nicely and then the pin was advanced into the center-center position of the head. A second derotation pin was placed in order to hold the reduction and the lag screw was drilled for, and a 90 mm lag screw was inserted, had excellent fixation and was secured proximally backing off 180 degrees to allow for subsidence if needed. I did place some compression through this as well. Next, a distal locking screw was placed, measuring 36 mm which had excellent fixation. The wounds were then irrigated and closed with 0 Vicryl to repair the fascia, 2-0 to close the subcu and the skin was closed with iveth. Naropin was added as an adjunct local anesthetic. Sterile dressings were applied. Patient tolerated the procedure well. Final fluoroscopic views demonstrated satisfactory alignment position of the fracture and hardware. Blood loss was 100 cc. Postop per protocol, will have the patient weightbear to tolerance. Use a walker. Will plan to use Lovenox 30 mg b.i.d. for DVT prophylaxis as she is at increased risk for DVT given a history of PE. Will continue this for 21 days postoperatively. If the hospitalist would prefer to do another DVT prophylaxis, would be open to this. BRENNAN
[2016-10-29] MEDS ORDERED: HYDROmorphone 0.5 mg/0.5 mL iSecure Syringe IVPUSH PRN (14:10)
[2016-10-29] MEDS: Sodium Chloride LOK Flush 10 mL Syringe IV SCH ×2 (16:30→23:30)
[2016-10-29] MEDS: hydrOXYzine Pamoate 25 mg Capsule PO PRN ×2 (18:30→22:25)
[2016-10-29] MEDS: HYDROcodone-APAP 5-325 mg Tablet PO PRN ×2 (18:31→22:25)
[2016-10-29] MEDS ORDERED: Acetaminophen IV 1,000 MG in IV Premix 1 EACH IV ONE (18:55)
[2016-10-29] MEDS: Senna-Docusate 8.6-50 mg Tablet PO SCH (20:19)
--- NOTE | 2016-10-29 20:33 | NUR ---
Fentanyl Patch Fentanyl patch dose increased from 12 mcg to [address] Cuellar. Old patch removed and destroyed with drink waiter, Nelly. New patch placed. CPOx in place- 98% on 2L NC. Addendum: 10/29/16 at 2202 by ROBERTA TIAN RN Order to start Lovenox 12-24 hours after surgery. 2030 dose withheld, as it did not meet this criteria.
--- NOTE | 2016-10-29 21:28 | PCM.PNMED ---
Subjective Date of Service Oct 29, 2016 Subjective The patient was seen postoperatively and she appeared comfortable as she was laying supine with her head elevated approximately 30 glasses on and reading a book. Patient had some postoperative pain with movement of the right lower extremity otherwise she had no new complaints. Exam Vital Signs Vital Sign - Last Date Time Temp Pulse Resp B/P Pulse Ox O2 Delivery O2 Flow Rate FiO2 10/29/16 20:18 36.7 84 17 131/74 97 Nasal Cannula 2.00 Intake and Output 10/28/16 10/28/16 10/29/16 Cumulative From/Thru 15:00 23:00 07:00 10/28/16 09:50 - 10/29/16 05:04 Intake Total 0 ml 1180 ml 1180 ml Output Total 600 ml 1350 ml 1950 ml Balance -600 ml -170 ml -770 ml Intake Oral 0 ml 325 ml 325 ml IV Total 855 ml 855 ml Output Urine Total 600 ml 1350 ml 1950 ml # Bowel Movements 0 0 Exam General: Patient is in no distress when she is lying still. However, with any movement she has pain in her right hip postoperatively. HEENT: Head is atraumatic and normocephalic. Eyes: Pupils are equally round and reactive to light and accommodation. Extraocular muscles are intact. Sclera are white, anicteric. Subconjunctival mucosa is pink. Ears and nose are unremarkable. Oropharynx: There is no mucosal lesions, there is no thrush, there is no pharyngitis. Oral mucosa is dry. Neck: Is supple, there are no nodes, or masses or tenderness. Chest: Is clear to auscultation and percussion. There are no rales, rhonchi, wheezes or rubs. Heart: Rate, rhythm is regular. There is no murmur, rub or gallop. Abdomen: Good bowel sounds are present. Abdomen is soft, nontender, no organomegaly or masses were appreciated. Extremities: Are symmetrical and well perfused. There is no edema, there is no cellulitis, no rash. Range of motion was not tested, patient did let me remove her sock on her right foot this evening even though there was painful. But not near as painful as yesterday.. Neurologic: There are no apparent focal neurological deficits. However, right lower extremity neurologic assessment could not be performed due to patient's pain with any movement. Cranial nerves II through XII are intact. There are no apparent sensory or motor deficits. Psychiatric: Patients mood is calm and she shows no sign of agitation. Genital: Deferred Rectal: Deferred Lab and Diagnostics Result Diagram: 10/28/16 1200 10/29/16 0907 X-Rays, CTs and MRIs PROCEDURE: X-RAY RIGHT FEMUR, TWO VIEWS ([id number]) INDICATIONS: preop ap/lat femur, ap hip TECHNIQUE: 3 views of the femur were acquired. COMPARISON: Pelvis and right hip 10/28/2016-T11 04 hours FINDINGS: Bones: Intertrochanteric fracture of the right hip with varus angulation deformity is again noted. Shaft of the femur is intact distally. Proximal tibia and fibula as seen appear intact. Soft tissues: No suspicious soft tissue calcifications or masses. IMPRESSION: Acute right hip fracture. Distal shaft is intact. Dictated by: Amado Melendrez M.D. on 10/28/2016 at 13:04 Approved by: Amado Melendrez M.D. on 10/28/2016 at 13:06 PROCEDURE: X-RAY CHEST ONE VIEW, PORTABLE ([id number]) INDICATIONS: preop TECHNIQUE: One view of the chest was acquired.-1138 hrs. COMPARISON: 10/28/2016-1117 hrs.; Chest 02/20/2016 FINDINGS: Surgical changes and devices: None. Lungs and pleura: No pleural effusions or pneumothorax. Small area of pulmonary density at the right base medially is unchanged. There may be minimal fluid along the right major fissure versus skinfold. Mediastinum: Mediastinal contours appear normal. Heart size is normal. Tortuous aorta. Bones and chest wall: No suspicious bony lesions. Overlying soft tissues appear unremarkable. IMPRESSION: Small area of atelectasis or infiltrate in the right lower lobe medially. Lungs otherwise clear. Dictated by: Amado Melendrez M.D. on 10/28/2016 at 12:07 Approved by: Amado Melendrez M.D. on 10/28/2016 at 12:10 PROCEDURE: X-RAY PELVIS W/LAT HIP (RT) ([id number]) INDICATIONS: fall, hip pain TECHNIQUE: AP pelvis with lateral view(s) of the right hip. COMPARISON: None. FINDINGS: Bones: No dislocations. Pelvic ring appears intact. No suspicious bony lesions. There is an acute appearing intertrochanteric right hip fracture Soft tissues: The visualized bowel gas pattern is normal. No suspicious soft tissue calcifications. IMPRESSION: Acute right hip fracture, intertrochanteric. Dictated by: Jorge Rey M.D. on 10/28/2016 at 11:35 Approved by: Jorge Rey M.D. on 10/28/2016 at 11:36 Assessment & Plan The patient is a very pleasant 89-year-old white female with history of gastroesophageal reflux, ulcerative colitis with history of GI bleed on warfarin which was prescribed for bilateral pulmonary emboli in the past. Patient completed 6 months of treatment with warfarin. She was in her usual state of health living at the [facility] home when she fell in the bathroom. She apparently was getting her weekly shower and then she said she was on the toilet after getting up from the toilet she turned and then fell onto the floor. She complained of severe pain in her right hip and was brought to [facility] emergency room where she was evaluated by Dr. Rustam Galeas. Patient was found to have an intertrochanteric right hip fracture and Dr. Wong called Dr. Finney the orthopedic surgeon library consultant who recommended that the patient be admitted to the hospitalist service and that she would operate on the patient in the morning. Patient was therefore admitted to the hospital service for further evaluation and treatment. # Right hip fracture, present at the time of admission. Active - Dr. Cuellar took the patient to surgery this morning and performed a "Right hip cephalomedullary nailing" for a right hip intertrochanteric fracture. - Pain control per orthopedic surgery. - The patient has never had atrial fibrillation and this should be removed from her record according to her 2 daughters. In fact she has never had any cardiac problems in the past. - I have ordered a consult to physical therapy, occupational therapy and speech therapy for their evaluation and treatment recommendations. # Ulcerative colitis, present at the time of admission. Active but stable - Continue azathioprine - Continue Entyvio as an outpatient - Continue probiotics # History gastroesophageal reflux disease, present times admission. Stable - Continue proton pump inhibitor - Close observation # History of pulmonary emboli status post treatment with warfarin for 6 months - We will give 1 dose of heparin this afternoon preoperatively. - Postoperatively DVT prophylaxis will be per orthopedic surgery. I agree with Lovenox 30 mg subcutaneous every 12 hours for 21 days. - Of note patient had a GI bleed on warfarin. However, her ulcerative colitis was not controlled at that time. Now her ulcerative colitis appears to be well controlled with Entyvia. Disposition: The patient will be here for another 48-72 hours and then likely be transferred to a senior care facility for rehabilitation. Appreciate orthopedic surgery help. Pain Evaluation: Adequate Pain Control GI Prophylaxis: Proton Pump Inhibitor VTE Prophylaxis: Sub-Q Heparin (Unfractionated) VTE Mechanical Devices: Intermittant Pneumatic CD Resuscitation Status: CPR: Attempt Resuscitation Rodney Higuera MD Oct 29, 2016 21:27
[2016-10-30] VITALS (7 sets, daily range): BP systolic 108–141; BP diastolic 60–69; PULSE 66–89; RESP 16–17; O2SAT 90–97
[2016-10-30] MEDS: D5 0.45% NaCl + KCl 20 mEq/L 1,000 ML IV SCH ×2 (03:46→18:00)
[2016-10-30] MEDS: 0.9% Sodium Chloride 1,000 ML IV SCH ×2 (04:44→18:25)
[2016-10-30] MEDS: Pantoprazole 20 mg ER24 Tablet PO SCH (04:52)
[2016-10-30] MEDS: HYDROcodone-APAP 5-325 mg Tablet PO PRN ×4 (04:52→20:44)
[2016-10-30] MEDS: hydrOXYzine Pamoate 25 mg Capsule PO PRN ×3 (04:53→20:43)
[2016-10-30 05:40] LABS: BASOPHILS % (AUTO) 0.4 % (0-3); EOSINOPHILS % (AUTO) 1.6 % (0-5); MONOCYTES % (AUTO) 13.7 % (4-12); Mean Corpuscular Hemoglobin 31.9 pg (27.0-35.0); Mean Corpuscular Volume 96.7 fL (81-100); NEUTROPHILS % (AUTO) 72.7 % (40-74); Platelet Count 201 bil/L (150-400)
[2016-10-30 06:06] LABS: Magnesium 1.8 mg/dL (1.6-2.6); Phosphorus 2.5 mg/dL (2.5-4.9)
[2016-10-30] MEDS: Lactobacillus Rhamnosus 10 Bil Unit Capsule PO SCH (08:30)
[2016-10-30] MEDS: Sodium Chloride LOK Flush 10 mL Syringe IV SCH ×3 (08:30→23:50)
[2016-10-30] MEDS: Senna-Docusate 8.6-50 mg Tablet PO SCH ×2 (09:11→20:42)
--- NOTE | 2016-10-30 10:30 | PCM.PNORTH ---
Subjective Date of Service: Oct 30, 2016 Visit Information: Reason for Visit Right Hip Fx Surgery/Surgery Date right hip IM nail 10/29/2016 Post-Op Day # 1 Date of Admission: Oct 28, 2016 at 13:23 Hospital Day # Subjective Patient denies any pain. She was given 1 [place] about half an hour ago and is now quite sleepy. She is not able to keep her eyes open or finish sentences. Postop General: No Complaints Pain Management: PO, Good Pain Control Objective Exam Objective Patient is seen lying in bed. Her daughter is at bedside. Vital Signs and I/O Vital Sign - Last Date Time Temp Pulse Resp B/P Pulse Ox O2 Delivery O2 Flow Rate FiO2 10/30/16 05:57 36.7 78 17 132/69 97 Nasal Cannula 2.00 Intake and Output 10/29/16 10/29/16 10/30/16 Cumulative From/Thru 15:00 23:00 07:00 10/28/16 09:50 - 10/30/16 05:51 Intake Total 990 ml 388 ml 1250 ml 3808 ml Output Total 800 ml 300 ml 500 ml 3550 ml Balance 190 ml 88 ml 750 ml 258 ml Intake Oral 100 ml 50 ml 475 ml IV Total 990 ml 288 ml 1200 ml 3333 ml Output Urine Total 700 ml 300 ml 500 ml 3450 ml Estimated Blood Loss 100 ml 100 ml # Bowel Movements 0 0 Lab & Micro Results Laboratory Tests Test 10/30/16 04:44 White Blood Count 7.1th/mm3 (3.8-10.1) Red Blood Count 3.07mil/mm3 (3.90-5.20) Hemoglobin 9.8g/dL (12.0-15.6) Hematocrit 29.7% (35.0-46.0) Mean Corpuscular Volume 96.7fL (81-100) Mean Corpuscular Hemoglobin 31.9pg (27.0-35.0) Mean Corpuscular Hemoglobin Concent 33.0% (32.0-37.0) Red Cell Distribution Width 17.3% (12.3-15.4) Platelet Count 201bil/L (150-400) Neutrophils (%) (Auto) 72.7% (40-74) Lymphocytes (%) (Auto) 11.2% (14-46) Monocytes (%) (Auto) 13.7% (4-12) Eosinophils (%) (Auto) 1.6% (0-5) Basophils (%) (Auto) 0.4% (0-3) Sodium Level 137mEq/L (134-144) Potassium Level 4.4mEq/L (3.5-5.2) Chloride Level 106mEq/L (97-108) Carbon Dioxide Level 20mmol/L (18-29) Blood Urea Nitrogen 11mg/dL (8-27) Creatinine 0.72mg/dL (0.57-1.00) Estimat Glomerular Filtration Rate 110mL/min (>59) Glucose Level 113mg/dL (60-99) Calcium Level 9.1mg/dL (8.5-10.1) Phosphorus Level 2.5mg/dL (2.5-4.9) Magnesium Level 1.8mg/dL (1.6-2.6) Thyroid Stimulating Hormone (TSH) 1.180uIU/mL (0.450-4.500) Result Diagram: 10/30/1644310/30/16443 General Appearance: Alert, Oriented X3, Cooperative, No Acute Distress Extremities: Distal Pulses Palpable, No Compartment Syndrom Noted, Thigh & Calf Soft/Nontender Postop Sensory Motor: Distal Motor Intact, Distal Sensation Intact, NVI Distally SURGICAL WOUND : Wound Location/Description Surgical dressing is clean, dry and intact. No direct observation of the wound Activity: Activity per PT Catheters: Urethral 2 Way Bailey Assessment & Plan Impression POD #1 right hip IM nail Problems: Plan Weightbearing: Weightbearing as tolerated with walker DVT prophylaxis: Lovenox 30 mg subcutaneous twice a day 3 weeks followed by aspirin 325 mg twice a day 4 weeks. Patient has a history of PE. Physical therapy for transfers, progressive ambulation, therapeutic exercise Wound care: PA will change dressing on postop day 2 Discharge plan: Discharge in 1-2 days when medically stable. Plan is for [facility] facility for continued nursing care, daily PT/OT for 1 month Follow-up plan: In 2 weeks at [facility] with PA for wound check and at [address] Cuellar with x-rays Pain Management: Fentanyl patch, [place], Dilaudid, Vistaril VTE Prophylaxis: Sub-Q Heparin (Unfractionated), SCDs Resuscitation Status: CPR: Attempt Resuscitation DufurMariela Fields PA-C Oct 30, 2016 10:29
--- NOTE | 2016-10-30 11:08 | NUR ---
Social Work- Continued D/C Planning/ Multi-Disciplinary Rounds Data: EMR reviewed. Pt is on day 2 of hospitalization for right hip fracture. Pt is POD 1. Per multi-disciplinary rounds and conversations with Ortho, pt will require SNF at discharge. Pt is likely to discharge on POD 3. SW acknowledges order for nursing, PT/OT at SNF for approximately 1 month. SW met with pt and daughter at bedside regarding discharge plan. Pt was somnolent and slept during this conversation. Pt's daughter and STAFF REGISTERED NURSE discussed SNF order and SNF CHOICE LIST PROVIDED. Pt's daughter chose 1) [facility] 2) [facility] 3) [facility] and 4) [facility] in [place]. FIRST OFFICER AND FLIGHT INSTRUCTOR asked to make referrals to facilities. PT is going to work with pt today. Pt anticipated to discharge to SNF on POD 3 pending clinical course. Paperwork in chart. PASRR in folder. SW will continue to follow. Assessment: Pt for whom SNF is medically necessary Plan: Referrals made to 1) [facility] 2) [facility] 3) [facility] and 4) [facility] in [place]. PT is going to work with pt today. Pt anticipated to discharge to SNF on POD 3 pending clinical course. Paperwork in chart. PASRR in folder. SW will continue to follow. HEIDI Ann Addendum: 10/30/16 at 1128 by RACHEL MANZANARES T/C from Lizzie at [facility] accepting pt at discharge with Dr. Carcamo to follow. Pt was awake when STAFF REGISTERED NURSE when in to update pt's daughter. Pt agreeable to discharge to SNF prior to returning home to [facility]. Pt's daughter agreeable to discharge plan. SW will continue to follow. Winifred Manzanares, STAFF REGISTERED NURSE
--- NOTE | 2016-10-30 11:15 | NUR ---
Gave access and faxed facesheet to 1. [facility] 2. [facility] 3. [facility] and the 4th preference would be [facility] in [place] if none of these facilities can accept. Done per FUEL EFFICIENT AUTOMOBILE DESIGNER and MD order.
--- NOTE | 2016-10-30 13:12 | NUR ---
Evaluation completed. Please go to "Notes" then click on "Assessments and Notes" (bottom left corner of screen). Then select appropriate discipline tab on top of screen.
--- NOTE | 2016-10-30 18:26 | NUR ---
Pain/Activity Pt continues to be very painful with movement and touch to her R leg, but overall has tolerated turning, sitting up and adjustments much better this afternoon than she did this morning. Fentanyl patch is in place. [place] 1 tablet given q4hrs, when combined with Vistaril pt was very drowsy. 650mg PO Tylenol given as additional pain control this evening. When reassessing, pt rates pain at a 6/10 but states "I'm good!" and refused available [place]. Daughter at bedside throughout this conversation and is pleased with pain management at this time. [id number] continue. Pt up with PT only, order received to keep Bailey until after PT d/t pain control.
--- NOTE | 2016-10-30 21:14 | PCM.PNMED ---
Subjective Date of Service Oct 30, 2016 Subjective The patient appears to be having more pain in her right hip today than yesterday. She did stand at her bedside with physical therapy, however now she appears to be in more pain. She has no other new complaints other than increased pain. Exam Vital Signs Vital Sign - Last Date Time Temp Pulse Resp B/P Pulse Ox O2 Delivery O2 Flow Rate FiO2 10/30/16 17:32 Supplement Oxygen 10/30/16 16:34 82 10/30/16 11:03 97 1.50 10/30/16 10:01 36.7 16 108/60 Intake and Output 10/29/16 10/29/16 10/30/16 Cumulative From/Thru 15:00 23:00 07:00 10/28/16 09:50 - 10/30/16 05:51 Intake Total 990 ml 388 ml 1250 ml 3808 ml Output Total 800 ml 300 ml 500 ml 3550 ml Balance 190 ml 88 ml 750 ml 258 ml Intake Oral 100 ml 50 ml 475 ml IV Total 990 ml 288 ml 1200 ml 3333 ml Output Urine Total 700 ml 300 ml 500 ml 3450 ml Estimated Blood Loss 100 ml 100 ml # Bowel Movements 0 0 Exam General: Patient is in no distress when she is lying still. However, with any movement she has increased pain in her right hip postoperatively. HEENT: Head is atraumatic and normocephalic. Eyes: Pupils are equally round and reactive to light and accommodation. Extraocular muscles are intact. Sclera are white, anicteric. Subconjunctival mucosa is pink. Ears and nose are unremarkable. Oropharynx: There is no mucosal lesions, there is no thrush, there is no pharyngitis. Oral mucosa is dry. Neck: Is supple, there are no nodes, or masses or tenderness. Chest: Is clear to auscultation and percussion. There are no rales, rhonchi, wheezes or rubs. Heart: Rate, rhythm is regular. There is no murmur, rub or gallop. Abdomen: Good bowel sounds are present. Abdomen is soft, nontender, no organomegaly or masses were appreciated. Extremities: Are well perfused. There is no edema, there is no cellulitis, no rash. The right hip dressing is clean dry and intact with no strikethrough bleeding. Range of motion was not tested, patient did let move her right foot due to severe pain in her hip. Neurologic: There are no apparent focal neurological deficits. However, right lower extremity neurologic assessment could not be performed due to patient's pain with any movement. Cranial nerves II through XII are intact. There are no apparent sensory or motor deficits. Psychiatric: Patients mood is calm and she shows no sign of agitation. Genital: Deferred Rectal: Deferred Lab and Diagnostics Result Diagram: 10/30/1644310/30/164 X-Rays, CTs and MRIs PROCEDURE: X-RAY RIGHT FEMUR, TWO VIEWS ([id number]) INDICATIONS: preop ap/lat femur, ap hip TECHNIQUE: 3 views of the femur were acquired. COMPARISON: Pelvis and right hip 10/28/2016-T11 04 hours FINDINGS: Bones: Intertrochanteric fracture of the right hip with varus angulation deformity is again noted. Shaft of the femur is intact distally. Proximal tibia and fibula as seen appear intact. Soft tissues: No suspicious soft tissue calcifications or masses. IMPRESSION: Acute right hip fracture. Distal shaft is intact. Dictated by: Aamdo Melendrez M.D. on 10/28/2016 at 13:04 Approved by: Amado Melendrez M.D. on 10/28/2016 at 13:06 PROCEDURE: X-RAY CHEST ONE VIEW, PORTABLE ([id number]) INDICATIONS: preop TECHNIQUE: One view of the chest was acquired.-1138 hrs. COMPARISON: 10/28/2016-1117 hrs.; Chest 02/20/2016 FINDINGS: Surgical changes and devices: None. Lungs and pleura: No pleural effusions or pneumothorax. Small area of pulmonary density at the right base medially is unchanged. There may be minimal fluid along the right major fissure versus skinfold. Mediastinum: Mediastinal contours appear normal. Heart size is normal. Tortuous aorta. Bones and chest wall: No suspicious bony lesions. Overlying soft tissues appear unremarkable. IMPRESSION: Small area of atelectasis or infiltrate in the right lower lobe medially. Lungs otherwise clear. Dictated by: Amado Melendrez M.D. on 10/28/2016 at 12:07 Approved by: Amado Melendrez M.D. on 10/28/2016 at 12:10 PROCEDURE: X-RAY PELVIS W/LAT HIP (RT) ([id number]) INDICATIONS: fall, hip pain TECHNIQUE: AP pelvis with lateral view(s) of the right hip. COMPARISON: None. FINDINGS: Bones: No dislocations. Pelvic ring appears intact. No suspicious bony lesions. There is an acute appearing intertrochanteric right hip fracture Soft tissues: The visualized bowel gas pattern is normal. No suspicious soft tissue calcifications. IMPRESSION: Acute right hip fracture, intertrochanteric. Dictated by: Jorge Rey M.D. on 10/28/2016 at 11:35 Approved by: Jorge Rey M.D. on 10/28/2016 at 11:36 Assessment & Plan The patient is a very pleasant 89-year-old white female with history of gastroesophageal reflux, ulcerative colitis with history of GI bleed on warfarin which was prescribed for bilateral pulmonary emboli in the past. Patient completed 6 months of treatment with warfarin. She was in her usual state of health living at the [facility] when she fell in the bathroom. She apparently was getting her weekly shower and then she said she was on the toilet after getting up from the toilet she turned and then fell onto the floor. She complained of severe pain in her right hip and was brought to [facility] emergency room where she was evaluated by Dr. Rustam Galeas. Patient was found to have an intertrochanteric right hip fracture and Dr. Wong called Dr. Finney the orthopedic surgeon manager regional who recommended that the patient be admitted to the hospitalist service and that she would operate on the patient in the morning. Patient was therefore admitted to the hospital service for further evaluation and treatment. # Right hip fracture, present at the time of admission. Active - Dr. Cuellar performed a "Right hip cephalomedullary nailing" for a right hip intertrochanteric fracture. Patient is postop day #1 - Pain control per orthopedic surgery. - The patient has never had atrial fibrillation and this should be removed from her record according to her 2 daughters. In fact she has never had any cardiac problems in the past. - I have ordered a consult to physical therapy, occupational therapy and speech therapy for their evaluation and treatment recommendations. # Ulcerative colitis, present at the time of admission. Active but stable - Continue azathioprine - Continue Entyvio as an outpatient - Continue probiotics # History gastroesophageal reflux disease, present times admission. Stable - Continue proton pump inhibitor - Close observation # History of pulmonary emboli status post treatment with warfarin for 6 months - We gave 1 dose of heparin preoperatively. - Postoperatively DVT prophylaxis will be per orthopedic surgery. I agree with Lovenox 30 mg subcutaneous every 12 hours for 21 days. - Of note patient had a GI bleed on warfarin. However, her ulcerative colitis was not controlled at that time. Now her ulcerative colitis appears to be well controlled with Entyvia. Disposition: The patient will be here for another 48 hours and then likely be transferred to a senior care facility for rehabilitation. Appreciate orthopedic surgery help. Pain Evaluation: Adequate Pain Control GI Prophylaxis: Proton Pump Inhibitor VTE Prophylaxis: Sub-Q Heparin (Unfractionated), SCDs VTE Mechanical Devices: Intermittant Pneumatic CD Resuscitation Status: CPR: Attempt Resuscitation DavidaRodney dubon MD Oct 30, 2016 21:14
[2016-10-31] VITALS (9 sets, daily range): BP systolic 98–133; BP diastolic 58–74; PULSE 72–91; RESP 16–17; O2SAT 93–97
[2016-10-31] MEDS: 0.9% Sodium Chloride 1,000 ML IV SCH ×3 (03:44→19:47)
--- NOTE | 2016-10-31 04:10 | NUR ---
Pain/Activity Patient up with PT only at this time. Currently being repositioned [id number] and tolerating well. When asked about pain at beginning of shift, patient replied with, "Im okay." Patient noticed to have some facial grimacing and vocal complaints while moving self in bed. When asked to rate pain, patient stated it was a 9/10. Agreeable to taking [place] for pain management. Resting with eyes closed remainder of shift so far. Awakens easily, but noted to be very tired. CPOx in place- 95% on RA. No further c/o breakthrough pain so far this shift.
[2016-10-31 05:33] LABS: BASOPHILS % (AUTO) 0.5 % (0-3); EOSINOPHILS % (AUTO) 1.8 % (0-5); MONOCYTES % (AUTO) 13.1 % (4-12); Mean Corpuscular Hemoglobin 31.6 pg (27.0-35.0); Mean Corpuscular Volume 97.5 fL (81-100); NEUTROPHILS % (AUTO) 71.9 % (40-74); Platelet Count 216 bil/L (150-400)
[2016-10-31 05:52] LABS: Magnesium 1.9 mg/dL (1.6-2.6)
[2016-10-31] MEDS: Pantoprazole 20 mg ER24 Tablet PO SCH (06:23)
[2016-10-31] MEDS: HYDROcodone-APAP 5-325 mg Tablet PO PRN ×3 (06:27→14:54)
[2016-10-31] MEDS: D5 0.45% NaCl + KCl 20 mEq/L 1,000 ML IV SCH ×2 (07:20→20:40)
[2016-10-31] MEDS: Sodium Chloride LOK Flush 10 mL Syringe IV SCH ×3 (08:18→19:46)
[2016-10-31] MEDS: Lactobacillus Rhamnosus 10 Bil Unit Capsule PO SCH (08:18)
[2016-10-31] MEDS: Senna-Docusate 8.6-50 mg Tablet PO SCH ×2 (08:18→20:14)
--- NOTE | 2016-10-31 10:12 | PCM.PNORTH ---
Subjective Date of Service: Oct 31, 2016 Visit Information: Reason for Visit Right Hip Fx Surgery/Surgery Date Post-Op Day # 2 Date of Admission: Oct 28, 2016 at 13:23 Hospital Day # Subjective Patient states he pain is 10/10 but is not showing any signs of pain. I elected to wait until after she had a pain pill to proceed with exam. She states she does not recall if she has had PT or if she has gotten out of bed. She acknowledges that she had hip surgery but also makes references to not having surgery and seems somewhat confused on why she is here. She also states she was told she was going home today and became quite irritated when I informed her that it was unlikely. Postop General: No Complaints Pain Management: PO, Good Pain Control Objective Exam Objective Patient laying in bed, no signs of pain, no grimacing or wincing. Vital Signs and I/O Vital Sign - Last Date Time Temp Pulse Resp B/P Pulse Ox O2 Delivery O2 Flow Rate FiO2 10/31/16 09:12 36.7 73 17 120/58 94 Room Air 10/30/16 11:03 1.50 Intake and Output 10/30/16 10/30/16 10/31/16 Cumulative From/Thru 15:00 23:00 07:00 10/28/16 09:50 - 10/31/16 06:10 Intake Total 878 ml 520 ml 200 ml 5406 ml Output Total 800 ml 450 ml 4800 ml Balance 878 ml -280 ml -250 ml 606 ml Intake Oral 520 ml 200 ml 1195 ml IV Total 878 ml 4211 ml Output Urine Total 800 ml 450 ml 4700 ml Estimated Blood Loss 100 ml # Bowel Movements 0 0 0 Lab & Micro Results Laboratory Tests Test 10/31/16 04:48 White Blood Count 6.6th/mm3 (3.8-10.1) Red Blood Count 2.82mil/mm3 (3.90-5.20) Hemoglobin 8.9g/dL (12.0-15.6) Hematocrit 27.5% (35.0-46.0) Mean Corpuscular Volume 97.5fL (81-100) Mean Corpuscular Hemoglobin 31.6pg (27.0-35.0) Mean Corpuscular Hemoglobin Concent 32.4% (32.0-37.0) Red Cell Distribution Width 17.3% (12.3-15.4) Platelet Count 216bil/L (150-400) Neutrophils (%) (Auto) 71.9% (40-74) Lymphocytes (%) (Auto) 12.4% (14-46) Monocytes (%) (Auto) 13.1% (4-12) Eosinophils (%) (Auto) 1.8% (0-5) Basophils (%) (Auto) 0.5% (0-3) Sodium Level 139mEq/L (134-144) Potassium Level 4.7mEq/L (3.5-5.2) Chloride Level 107mEq/L (97-108) Carbon Dioxide Level 22mmol/L (18-29) Blood Urea Nitrogen 13mg/dL (8-27) Creatinine 0.74mg/dL (0.57-1.00) Estimat Glomerular Filtration Rate 106mL/min (>59) Glucose Level 119mg/dL (60-99) Calcium Level 9.2mg/dL (8.5-10.1) Magnesium Level 1.9mg/dL (1.6-2.6) Total Bilirubin 0.5mg/dL (0.0-1.2) Aspartate Amino Transf (AST/SGOT) 11U/L (0-50) Alanine Aminotransferase (ALT/SGPT) 7U/L (0-32) Alkaline Phosphatase 59U/L (25-165) Total Protein 4.8g/dL (6.4-8.4) Albumin 2.5g/dL (3.4-5.0) Result Diagram: 10/31/168 10/31/16447 General Appearance: Alert, Oriented X3, Cooperative, No Acute Distress Extremities: Distal Pulses Palpable, No Compartment Syndrom Noted Postop Sensory Motor: Distal Motor Intact, Movement in Toes, Distal Sensation Intact, NVI Distally SURGICAL WOUND : Wound Location/Description Perioperative dressing clean, dry and intact. Activity: Activity per PT Catheters: Urethral 2 Way Bailey Assessment & Plan Impression POD#2 right hip IM nail Problems: Plan Patient has chronic back pain for which she uses a fentanyl patch at home. Patient states she is in pain without showing signs of pain and there is question to whether she is fully aware of her situation.Yesterday, when my partner examined her, she had taken a pain pill and become quite somnolent. It would be ideal to avoid additional narcotics with patient. Maybe IV acetaminophen would be a good option for her. Weightbearing: Weightbearing as tolerated with walker DVT prophylaxis: Lovenox 30 mg subcutaneous twice a day 3 weeks followed by aspirin 325 mg twice a day 4 weeks. Patient has a history of PE. Physical therapy for transfers, progressive ambulation, therapeutic exercise Wound care: Patient was not cooperative to a dressing change during exam. Please change it when she is up for PT or commode. Discharge plan: Discharge in 1-2 days when medically stable. Plan is for custodial facility for continued nursing care, daily PT/OT for 1 month Follow-up plan: In 2 weeks at [facility] with KT for wound check and at [address] Cuellar with x-rays VTE Prophylaxis: Sub-Q Enoxaparin, SCDs Resuscitation Status: CPR: Attempt Resuscitation Araseli Rutledge PA-C Oct 31, 2016 10:12
--- NOTE | 2016-10-31 10:51 | NUR ---
Social Work- Multi-Disciplinary Rounds Pt is not medically stable for discharge. Pt continues with PT. Pt has been accepted at [facility] with Carcamo to follow. Pt and daughter updated and agreeable to plan. No additional Discharge needs identified in rounds. Winifred Rodriguez MSW
--- NOTE | 2016-10-31 13:02 | NUR ---
NUTRITION ASSESSMENT: ASSESS: Pt is an 89yo F admitted for rt hip fx. She is POD#2 right hip IM nail. Pt has been placed on a full liquid, NT diet. PO has been fair at ~50% of meals. Pt has not had a BMx3 days. PMHX: GERD, UC, PE, Sepsis, C.Diff, GI bleed LABS: Reviewed. Glu 119, Alb 2.5 MEDS: Reviewed. GI: 0 BM noted- pt has history of UC SKIN: no major issues CURRENT WTS: 52.9kg, BMI 21.3kg/m2, admit wt 51kg DIET: Full liquid, NT, PO 50% EST. NEEDS: Kcals: 1325-1585kcal/day (25-30kcal/kg) Pro: 55-65g/day (1.0-1.2g/kg) NUTRITION DIAGNOSIS: 1.) Chew/swallow difficulty related to dysphagia as evidence by need for Full liquid diet w/NT texture per ST NUTRITION INTERVENTION: 1.) Continue diet per ST 2.) Continue Ensure on all trays MONITOR / EVAL: PO, ST, BM, labs, GI, POC, nutrition status. Will continue to monitor per moderate nutrition risk guidelines
--- NOTE | 2016-10-31 14:37 | NUR ---
Pain Patient's pain has been uncontrolled and is reported to continue as a 12/29 upon assessments. Patient has been able to nap on and off throughout shift, but yelps when LLE is touched in the slightest. Continuing to assess patient's pain medication requirements and needs. Changing pain regimen to assist patient's needs to decrease pain without over sedating. Hospitalist and Ortho PA aware. Addendum: 10/31/16 at 1654 by REY KOCH RN Patient has reported "no pain" during Q4 hour pain assessment. At 1450 patient received vistaril and nelson- will continue to offer this to patient as it seems to have helped. Patient's daughter also stated that the patient seemed to do better with PT today compared to yesterday. Continuing to assess patient's pain needs. IV Tylenol order also available PRN.
--- NOTE | 2016-10-31 14:40 | NUR ---
Family Patient's daughter was in this AM and expressed her concerns to this RN about patient's activity and pain. Informed patient and family about surgical procedure and that some pain is expected but we are doing everything we can to manage the patient's pain. Care conference with myself, hospitalist, devulcanizer charger, PT, and medical unit secretary in place for 1500 to go over patient and family's expectations and what can be accomplished during the patient's stay. Patient's other daughter/POA, Tangela, came in and expressed her concerns to this RN. Tangela, patient's daughter/POA stated "I was told she would be up three times a day and she hasn't been up except once in two days. I haven't even seen the doctor. She usually is great with pain, but is saying her pain is a 9/10. Is it infected?" Talked with Tangela about care conference and she agreed to have a meeting and stated "this is three days too late. We're just going to go over what you should have been doing but haven't. I need a piece of paper so I can take notes during the meeting so when things don't happen that you say are going to I have it written down." Talked with patient's daughter about the importance of the care conference and being able to hear the patient and her family's needs and have an interdisciplinary team there so everyone can come together to give complete information. Addendum: 10/31/16 at 1910 by REY KOCH RN Care conference with interdisciplinary team at 1500. Patient's daughter, Tangela, expressed her concerns to staff about expectations. Able to explain gap between what was initially communicated and fitting goals to be more patient specific in care. Patient's daughter, Tangela, stated she felt better and had all of her questions answered. Continuing to assess patient's needs and needs of family.
[2016-10-31] MEDS: hydrOXYzine Pamoate 25 mg Capsule PO PRN ×2 (14:53→20:14)
[2016-10-31] MEDS ORDERED: Acetaminophen IV 1,000 MG in IV Premix 1 EACH IV PRN (15:05)
--- NOTE | 2016-10-31 22:19 | PCM.PNMED ---
Subjective Date of Service Oct 31, 2016 Subjective Patient was having too much pain to really work with physical therapy at all. It took to therapist to get her just to sit at the side of the bed. Patient has no other complaints other than pain and is comfortable and resting still in bed without moving her right lower extremity. Exam Vital Signs Vital Sign - Last Date Time Temp Pulse Resp B/P Pulse Ox O2 Delivery O2 Flow Rate FiO2 10/31/16 19:40 36.6 80 17 133/74 97 Room Air 10/30/16 11:03 1.50 Intake and Output 10/30/16 10/30/16 10/31/16 Cumulative From/Thru 15:00 23:00 07:00 10/28/16 09:50 - 10/31/16 06:10 Intake Total 878 ml 520 ml 200 ml 5406 ml Output Total 800 ml 450 ml 4800 ml Balance 878 ml -280 ml -250 ml 606 ml Intake Oral 520 ml 200 ml 1195 ml IV Total 878 ml 4211 ml Output Urine Total 800 ml 450 ml 4700 ml Estimated Blood Loss 100 ml # Bowel Movements 0 0 0 Exam General: Patient is in no distress when she is lying still. However, with any movement she has increased pain in her right hip postoperatively. HEENT: Head is atraumatic and normocephalic. Eyes: Pupils are equally round and reactive to light and accommodation. Extraocular muscles are intact. Sclera are white, anicteric. Subconjunctival mucosa is pink. Ears and nose are unremarkable. Oropharynx: There is no mucosal lesions, there is no thrush, there is no pharyngitis. Oral mucosa is dry. Neck: Is supple, there are no nodes, or masses or tenderness. Chest: Is clear to auscultation and percussion. There are no rales, rhonchi, wheezes or rubs. Heart: Rate, rhythm is regular. There is no murmur, rub or gallop. Abdomen: Good bowel sounds are present. Abdomen is soft, nontender, no organomegaly or masses were appreciated. Extremities: Are well perfused. There is no edema, there is no cellulitis, no rash. The right hip dressing is clean dry and intact with no strikethrough bleeding. Range of motion was not tested, patient did let move her right foot due to severe pain in her hip. Neurologic: There are no apparent focal neurological deficits. However, right lower extremity neurologic assessment could not be performed due to patient's pain with any movement. Cranial nerves II through XII are intact. There are no apparent sensory or motor deficits. Psychiatric: Patients mood is calm and she shows no sign of agitation. Genital: Deferred Rectal: Deferred Lab and Diagnostics Result Diagram: 10/31/1644710/31/16447 X-Rays, CTs and MRIs PROCEDURE: X-RAY RIGHT FEMUR, TWO VIEWS ([id number]) INDICATIONS: preop ap/lat femur, ap hip TECHNIQUE: 3 views of the femur were acquired. COMPARISON: Pelvis and right hip 10/28/2016-T11 04 hours FINDINGS: Bones: Intertrochanteric fracture of the right hip with varus angulation deformity is again noted. Shaft of the femur is intact distally. Proximal tibia and fibula as seen appear intact. Soft tissues: No suspicious soft tissue calcifications or masses. IMPRESSION: Acute right hip fracture. Distal shaft is intact. Dictated by: Amado Melendrez M.D. on 10/28/2016 at 13:04 Approved by: Amado Melendrez M.D. on 10/28/2016 at 13:06 PROCEDURE: X-RAY CHEST ONE VIEW, PORTABLE ([id number]) INDICATIONS: preop TECHNIQUE: One view of the chest was acquired.-1138 hrs. COMPARISON: 10/28/2016-1117 hrs.; Chest 02/20/2016 FINDINGS: Surgical changes and devices: None. Lungs and pleura: No pleural effusions or pneumothorax. Small area of pulmonary density at the right base medially is unchanged. There may be minimal fluid along the right major fissure versus skinfold. Mediastinum: Mediastinal contours appear normal. Heart size is normal. Tortuous aorta. Bones and chest wall: No suspicious bony lesions. Overlying soft tissues appear unremarkable. IMPRESSION: Small area of atelectasis or infiltrate in the right lower lobe medially. Lungs otherwise clear. Dictated by: Amado Melendrez M.D. on 10/28/2016 at 12:07 Approved by: Amado Melendrez M.D. on 10/28/2016 at 12:10 PROCEDURE: X-RAY PELVIS W/LAT HIP (RT) ([id number]) INDICATIONS: fall, hip pain TECHNIQUE: AP pelvis with lateral view(s) of the right hip. COMPARISON: None. FINDINGS: Bones: No dislocations. Pelvic ring appears intact. No suspicious bony lesions. There is an acute appearing intertrochanteric right hip fracture Soft tissues: The visualized bowel gas pattern is normal. No suspicious soft tissue calcifications. IMPRESSION: Acute right hip fracture, intertrochanteric. Dictated by: Jorge Rey M.D. on 10/28/2016 at 11:35 Approved by: Jorge Rey M.D. on 10/28/2016 at 11:36 Assessment & Plan The patient is a very pleasant 89-year-old white female with history of gastroesophageal reflux, ulcerative colitis with history of GI bleed on warfarin which was prescribed for bilateral pulmonary emboli in the past. Patient completed 6 months of treatment with warfarin. She was in her usual state of health living at the [facility] when she fell in the bathroom. She apparently was getting her weekly shower and then she said she was on the toilet after getting up from the toilet she turned and then fell onto the floor. She complained of severe pain in her right hip and was brought to [facility] emergency room where she was evaluated by Dr. Rustam Galeas. Patient was found to have an intertrochanteric right hip fracture and Dr. Wong called Dr. Finney the orthopedic surgeon operational meteorologist who recommended that the patient be admitted to the hospitalist service and that she would operate on the patient in the morning. Patient was therefore admitted to the hospital service for further evaluation and treatment. # Right hip fracture, present at the time of admission. Active - Dr. Cuellar performed a "Right hip cephalomedullary nailing" for a right hip intertrochanteric fracture. Patient is postop day #2 - Pain control has become an issue and will substitute Tylenol IV for oral narcotics. - The patient has never had atrial fibrillation and this should be removed from her record according to her 2 daughters. In fact she has never had any cardiac problems in the past. - I have ordered a consult to physical therapy, occupational therapy and speech therapy for their evaluation and treatment recommendations. - The patient has not been progressing as well as the daughter Tangela thought she would be and we had patient care conference with the patient and the patient 's 2 daughters today at 3 PM. The nursing floor layer tile Delroy, charge nurse Hollie, patient's bedside nurse Janette, physical therapist and social media marketing specialist were all present and discussed goals of care with the patient and the patient's 2 daughters. All of their questions were answered. # Chronic pain with chronic narcotic dependence - Patient is on a chronic fentanyl patch for chronic back pain - Therefore it is difficult to control her postoperative pain. - We will try IV Tylenol 1 g every 8 hours when necessary # Ulcerative colitis, present at the time of admission. Active but stable - Continue azathioprine - Continue Entyvio as an outpatient - Continue probiotics # History gastroesophageal reflux disease, present times admission. Stable - Continue proton pump inhibitor - Close observation # History of pulmonary emboli status post treatment with warfarin for 6 months - We gave 1 dose of heparin preoperatively. - Postoperatively DVT prophylaxis will be per orthopedic surgery. I agree with Lovenox 30 mg subcutaneous every 12 hours for 21 days. - Of note patient had a GI bleed on warfarin. However, her ulcerative colitis was not controlled at that time. Now her ulcerative colitis appears to be well controlled with Entyvia. Disposition: The patient will be here for another 24 to 48 hours and then likely be transferred to a long-term facility for rehabilitation. Appreciate orthopedic surgery help. Pain Evaluation: Adequate Pain Control GI Prophylaxis: Proton Pump Inhibitor VTE Prophylaxis: Sub-Q Enoxaparin, SCDs VTE Mechanical Devices: Intermittant Pneumatic CD Resuscitation Status: CPR: Attempt Resuscitation Rodney Higuera MD Oct 31, 2016 22:19
[2016-11-01 01:03] VITALS: PULSE 74
[2016-11-01] MEDS: hydrOXYzine Pamoate 25 mg Capsule PO PRN ×3 (01:35→13:55)
[2016-11-01 03:41] VITALS: PULSE 74
--- NOTE | 2016-11-01 03:41 | NUR ---
Activity Pt bedrest over night, able to sleep most of shift. VSS, minimal diaphoresis, no CP or SOB. Some cognitive impairment with pt stating "I am in [place]". Pain levels of 2 out of 10, increases with movement and re-positioning. Managed with Tylenol and Vistaril. Plans to d/c FC this a.m. and PT to work with pt.
[2016-11-01 05:47] VITALS: BP 123/76; PULSE 73; RESP 18; O2SAT 92
[2016-11-01 05:52] LABS: BASOPHILS % (AUTO) 1.2 % (0-3); EOSINOPHILS % (AUTO) 7.4 % (0-5); MONOCYTES % (AUTO) 11.4 % (4-12); Mean Corpuscular Hemoglobin 31.4 pg (27.0-35.0); Mean Corpuscular Volume 96.8 fL (81-100); NEUTROPHILS % (AUTO) 62.2 % (40-74); Platelet Count 246 bil/L (150-400)
[2016-11-01] MEDS: Pantoprazole 20 mg ER24 Tablet PO SCH (06:33)
--- NOTE | 2016-11-01 06:55 | PCM.PNORTH ---
Subjective Date of Service: Nov 01, 2016 Visit Information: Reason for Visit Right Hip Fx Surgery/Surgery Date Post-Op Day # Date of Admission: Oct 28, 2016 at 13:23 Hospital Day # Subjective Found patient sleeping comfortably this morning and she was easily awakened. Patient is well-positioned in bed and has no complaints at this time. Discussed patient's disposition with her at some length this morning. Discussed that considering her participation this far with formal physical therapy she would likely discharged to shelter facility for some period of time and she is agreeable to this plan. I will also discuss with patient this morning that her Bailey must come out today and she would either have to participate with a bedside commode or briefs. Nursing staff has discussed with me this morning that she has been very pain intolerant since arrival. Her narcotic pain medication was discontinued secondary to somnolence and she has not received recent IV Tylenol as ordered. She is receiving Vistaril. I have discussed patient's pain control plan at some length with nursing and new pain control plan will be outlined in the assessment and plan section of this note. Patient lives at an adult family home at baseline and wishes to return to location ultimately. Postop General: No Complaints, No Shortness of Breath, No Chest Pain Pain Management: PO Objective Exam Objective Patient is alert and communicative. Postoperative dressing is very lightly soiled and is in place. Bilateral SCDs are in place Bailey catheter is in place and working. This will be discontinued this morning Patient is well-positioned in bed. Calf and thigh are soft and nontender. Toe wiggle and sensation are intact at right lower extremity distally No significant gait participation with formal physical therapy yet as of this time. Recommendation is for discharge to shelter facility. Vital Signs and I/O Vital Sign - Last Date Time Temp Pulse Resp B/P Pulse Ox O2 Delivery O2 Flow Rate FiO2 11/01/16 05:47 36.7 73 18 123/76 92 Room Air 10/30/16 11:03 1.50 Intake and Output 10/31/16 10/31/16 11/01/16 Cumulative From/Thru 15:00 23:00 07:00 10/28/16 09:50 - 11/01/16 05:46 Intake Total 320 ml 100 ml 5826 ml Output Total 560 ml 450 ml 5810 ml Balance -240 ml -350 ml 16 ml Intake Oral 320 ml 100 ml 1615 ml IV Total 4211 ml Output Urine Total 560 ml 450 ml 5710 ml Estimated Blood Loss 100 ml # Bowel Movements 0 0 0 Lab & Micro Results Laboratory Tests Test 11/01/16 04:47 White Blood Count 5.8th/mm3 (3.8-10.1) Red Blood Count 2.77mil/mm3 (3.90-5.20) Hemoglobin 8.7g/dL (12.0-15.6) Hematocrit 26.8% (35.0-46.0) Mean Corpuscular Volume 96.8fL (81-100) Mean Corpuscular Hemoglobin 31.4pg (27.0-35.0) Mean Corpuscular Hemoglobin Concent 32.5% (32.0-37.0) Red Cell Distribution Width 17.3% (12.3-15.4) Platelet Count 246bil/L (150-400) Neutrophils (%) (Auto) 62.2% (40-74) Lymphocytes (%) (Auto) 17.6% (14-46) Monocytes (%) (Auto) 11.4% (4-12) Eosinophils (%) (Auto) 7.4% (0-5) Basophils (%) (Auto) 1.2% (0-3) Sodium Level 139mEq/L (134-144) Potassium Level 4.7mEq/L (3.5-5.2) Chloride Level 108mEq/L (97-108) Carbon Dioxide Level 22mmol/L (18-29) Blood Urea Nitrogen 17mg/dL (8-27) Creatinine 0.79mg/dL (0.57-1.00) Estimat Glomerular Filtration Rate 98mL/min (>59) Glucose Level 96mg/dL (60-99) Calcium Level 9.3mg/dL (8.5-10.1) Magnesium Level 2.0mg/dL (1.6-2.6) Result Diagram: 11/01/1644611/01/16446 General Appearance: Alert, Cooperative, No Acute Distress Extremities: No Compartment Syndrom Noted, Thigh & Calf Soft/Nontender Postop Sensory Motor: Distal Motor Intact, Movement in Toes, Distal Sensation Intact Activity: Activity per PT, Ambulate with PT (weightbearing as tolerated on the right lower extremity using front wheeled walker) Catheters: None Assessment & Plan Impression Patient is an 89-year-old female who was undergone a fall in the shower at her [place] family home and a subsequent right septal medullary nail placed at the right hip placed on 10/29/[address] Lucius Cuellar. Patient is alert and communicative but there appears to be some mild cognitive dysfunction on extended discussion. She has been very pain intolerance since her arrival and there has been some adjusting of her pain medications without success. She has not participated well with formal physical therapy up to this time. Problems: Plan Postop day #3 from right hip cephalo-medullary nail placement on 10/29/[address] Lucius Cuellar. Weight-bear as tolerated on the right lower extremity using frontwheel walker. Continue formal physical therapy for mobility, gait and safety. I have spoken with Evens in physical therapy and discussed patient's progress and he feels that patient will likely be available for discharge to shelter facility today based on her performance yesterday. Continue Lovenox 30 mg subcutaneous twice a day for a total of 21 days postop with transition to ASA 325 mg EC by mouth twice a day 4 weeks postop for DVT prophylaxis. Patient has history of PE. Continue by mouth pain control with baseline fentanyl patch which is used secondary to chronic back pain and additional Seltzer 5/325 one to 2 tabs by mouth every 4 hours with Vistaril 25 mg every 4 hours. Order specifies one tablet only to start and monitor closely for somnolence. Patient has apparently not received any IV Tylenol recently. Note: Seltzer had been discontinued previously secondary to concern for somnolence. Patient's pain control has not been adequate per nursing and she has had poor participation with formal physical therapy. This is restarted with specific directions to nursing included in the order to monitor somnolence in an effort to improve her pain control and increase her participation with physical therapy and in order to reduce risk of pneumonia from on bedrest. I have spoken with the nighttime hospitalist, Dr. Craig, whom has been agreeable to this plan. I have since spoken with Dr. Higuera whom is the a.m. hospitalist and he has explained rationale for discontinuance of Seltzer. We have agreed at this time to test Seltzer again at the dosing mentioned above in an effort to control patient's pain and encourage her to be mobile with physical therapy. Change dressings when necessary. Bailey is discontinued this morning with concern for prolonged catheterization leading to urinary tract infection. Nursing please fit bilateral thigh-high SURYA pizarro today. Orthopedics thanks hospitalist service for their help in the medical management of this patient. Orthopedics will sign off on this patient at this time but as always we will remain available for consultation or treatment as needed. Follow-up in 2 weeks at [facility] orthopedic clinic with mid-level provider for wound check and suture removal. Follow-up in 6 weeks at [facility] orthopedic clinic with Dr. Lucius Cuellar with right two-view femur x-rays on arrival. Anticipate discharge by hospitalist service to shelter facility today on 11/01/2016 for when they have determine patient to be medically stable for discharge. VTE Prophylaxis: Sub-Q Enoxaparin (Lovenox 30 mg subcutaneous twice a day 21 days postop with transition to ASA 325 mg EC by mouth twice a day for an additional 4 weeks postop totaling 7 weeks postoperative DVT prophylaxis), SCDs , SURYA Pizarro Resuscitation Status: CPR: Attempt Resuscitation Anthony Scott PA-C Nov 01, 2016 06:55
[2016-11-01] MEDS: HYDROcodone-APAP 5-325 mg Tablet PO PRN ×2 (07:59→13:55)
[2016-11-01] MEDS: Senna-Docusate 8.6-50 mg Tablet PO SCH (07:59)
[2016-11-01] MEDS: Sodium Chloride LOK Flush 10 mL Syringe IV SCH (07:59)
[2016-11-01] MEDS: Lactobacillus Rhamnosus 10 Bil Unit Capsule PO SCH (07:59)
[2016-11-01 08:00] VITALS: PULSE 76
[2016-11-01 09:42] VITALS: BP 116/64; PULSE 76; RESP 16; O2SAT 94
[2016-11-01] MEDS: 0.9% Sodium Chloride 1,000 ML IV SCH (10:25)
--- NOTE | 2016-11-01 15:40 | PCM.DIMED ---
Discharge Instructions Date of Service Nov 01, 2016 Dates of Hospitalization Oct 28, 2016 at 13:23 Discharge Diagnosis Discharge Diagnosis Ground level fall with Right Hip Fracture Diet Discharge Diet: Other (Pureed Diet) Activity Discharge Activity: Outpatient Physical Therapy (Per Physical Therapy) Call your provider Call your provider for: Fever or Chills, Shortness of breath, Bleeding, Chest pain, Vomitting, Excessive diarrhea, Weakness (unilateral), Other Patient Instructions Follow-up Provider: Hakeem Carcamo MD Follow-up with PCP in: 1 week Rodney Higuera MD Nov 01, 2016 15:40
[2016-11-01] MEDS ORDERED: LOV30 SUBQ (15:50)
[2016-11-01] MEDS ORDERED: HYDR-4003 PO (15:50)
[2016-11-01] MEDS ORDERED: Fentanyl TOPICAL (15:50)
--- NOTE | 2016-11-01 15:58 | NUR ---
Faxed orders to [facility] and placed copy in the chart. [facility] is transporting patient via BLS at 1630. PCS form completed and placed with discharge packet. Updated FUR MACHINE OPERATOR and RN
--- NOTE | 2016-11-01 15:58 | NUR ---
Social Work: Discharge D: EMR reviewed. Pt is on day 4 of hospitalization. Pt has been accepted at [facility] with Dr. Espitia to follow. NAI received T/C from MD stating pt is ready for discharge. NAI called Lizzie at [facility] to confirm pt can transfer to facility today. NAI scheduled BLS transport with [facility] at 1630. NAI completed PCN form and PASSR. NAI Pharmacy Technician Instructor completed transfer packet and left at RN station. NAI updated family, RN, and MD of transport time. All agreeable to plan. NAI updated Lizzie at [facility] that pt will leave via BLS at 1630 and arrive shortly after. Lizzie agreeable to plan. A: Pt for whom a SNF has been deemed medically necessary. P: Pt to discharge to [facility] via [facility] BLS at 1630 today. NAI completed PCN form for BLS transfer and PASSR. NAI Pharmacy Technician Instructor completed transfer packet and left at RN station. NAI confirmed transport time with RN and charge attendant. NAI updated family - all agreeable to plan. HEIDI Nance
--- NOTE | 2016-11-01 16:36 | NUR ---
Discharge Patient discharged to SNF via BLS transport. IV DC'd and intact. Gregory barreto on [facility] and other pair went with patient to SNF. Transferred to [facility] total assist from bed. Patient's family aware. Report given to welder operator for transport and to RN at [facility].
--- NOTE | 2016-11-02 00:18 | PCM.DC.MED ---
Discharge Summary Date of Service Nov 01, 2016 Dates of Hospitalization Date of Hospital Admission Oct 28, 2016 at 13:23 Date of Discharge: Nov 01, 2016 Providers: Admitting Physician: Rodney Higuera MD Primary Care Physician: Hakeem Carcamo MD Attending Physician: Rodney Higuera MD Diagnosis at Time of Discharge Diagnosis at Time of Discharge Ground level fall with Right Hip Fracture Consultations Dr. Cuellar of orthopedic surgery Procedures XRay, CTs & MRIs PROCEDURE: X-RAY RIGHT FEMUR, TWO VIEWS ([id number]) INDICATIONS: preop ap/lat femur, ap hip TECHNIQUE: 3 views of the femur were acquired. COMPARISON: Pelvis and right hip 10/28/2016-T11 04 hours FINDINGS: Bones: Intertrochanteric fracture of the right hip with varus angulation deformity is again noted. Shaft of the femur is intact distally. Proximal tibia and fibula as seen appear intact. Soft tissues: No suspicious soft tissue calcifications or masses. IMPRESSION: Acute right hip fracture. Distal shaft is intact. Dictated by: Amado Melendrez M.D. on 10/28/2016 at 13:04 Approved by: Amado Melendrez M.D. on 10/28/2016 at 13:06 PROCEDURE: X-RAY CHEST ONE VIEW, PORTABLE ([id number]) INDICATIONS: preop TECHNIQUE: One view of the chest was acquired.-1138 hrs. COMPARISON: 10/28/2016-1117 hrs.; Chest 02/20/2016 FINDINGS: Surgical changes and devices: None. Lungs and pleura: No pleural effusions or pneumothorax. Small area of pulmonary density at the right base medially is unchanged. There may be minimal fluid along the right major fissure versus skinfold. Mediastinum: Mediastinal contours appear normal. Heart size is normal. Tortuous aorta. Bones and chest wall: No suspicious bony lesions. Overlying soft tissues appear unremarkable. IMPRESSION: Small area of atelectasis or infiltrate in the right lower lobe medially. Lungs otherwise clear. Dictated by: Amado Melendrez M.D. on 10/28/2016 at 12:07 Approved by: Amado Melendrez M.D. on 10/28/2016 at 12:10 PROCEDURE: X-RAY PELVIS W/LAT HIP (RT) ([id number]) INDICATIONS: fall, hip pain TECHNIQUE: AP pelvis with lateral view(s) of the right hip. COMPARISON: None. FINDINGS: Bones: No dislocations. Pelvic ring appears intact. No suspicious bony lesions. There is an acute appearing intertrochanteric right hip fracture Soft tissues: The visualized bowel gas pattern is normal. No suspicious soft tissue calcifications. IMPRESSION: Acute right hip fracture, intertrochanteric. Dictated by: Jorge Rey M.D. on 10/28/2016 at 11:35 Approved by: Jorge Rey M.D. on 10/28/2016 at 11:36 Brief History The patient is a very pleasant 89-year-old white female with history of gastroesophageal reflux, ulcerative colitis with history of GI bleed on warfarin which was prescribed for bilateral pulmonary emboli in the past. Patient completed 6 months of treatment with warfarin. She was in her usual state of health living at the [facility] adult home when she fell in the bathroom. She apparently was getting her weekly shower and then she said she was on the toilet after getting up from the toilet she turned and then fell onto the floor. She complained of severe pain in her right hip and was brought to [facility] emergency room where she was evaluated by Dr. Rustam Galeas. Patient was found to have an intertrochanteric right hip fracture and Dr. Wong called Dr. Finney the orthopedic surgeon communication technician who recommended that the patient be admitted to the hospitalist service and that she would operate on the patient in the morning. Patient was therefore admitted to the hospital service for further evaluation and treatment. Hospital Course The patient is a very pleasant 89-year-old white female with history of gastroesophageal reflux, ulcerative colitis with history of GI bleed on warfarin which was prescribed for bilateral pulmonary emboli in the past. Patient completed 6 months of treatment with warfarin. She was in her usual state of health living at the [facility] adult home when she fell in the bathroom. She apparently was getting her weekly shower and then she said she was on the toilet after getting up from the toilet she turned and then fell onto the floor. She complained of severe pain in her right hip and was brought to [facility] emergency room where she was evaluated by Dr. Rustam Galeas. Patient was found to have an intertrochanteric right hip fracture and Dr. Wong called Dr. Finney the orthopedic surgeon communication technician who recommended that the patient be admitted to the hospitalist service and that she would operate on the patient in the morning. Patient was therefore admitted to the hospital service for further evaluation and treatment. # Right hip fracture, present at the time of admission. Active - Dr. Cuellar performed a "Right hip cephalomedullary nailing" for a right hip intertrochanteric fracture. Patient is postop day #3 - Pain control has become an issue and will substitute Tylenol IV for oral narcotics. - The patient has never had atrial fibrillation and this should be removed from her record according to her 2 daughters. In fact she has never had any cardiac problems in the past. - I have ordered a consult to physical therapy, occupational therapy and speech therapy for their evaluation and treatment recommendations. - The patient has not been progressing as well as the daughter Tangela thought she would be and we had patient care conference with the patient and the patient 's 2 daughters today at 3 PM. The nursing inspector floor Delroy, charge nurse Hollie, patient's bedside nurse Janette, physical therapist and public health social worker were all present and discussed goals of care with the patient and the patient's 2 daughters. All of their questions were answered. # Chronic pain with chronic narcotic dependence - Patient is on a chronic fentanyl patch for chronic back pain - Therefore it is difficult to control her postoperative pain. - We will try IV Tylenol 1 g every 8 hours when necessary but at the time of discharge patient will be placed back on [place]-Tylenol by mouth. # Ulcerative colitis, present at the time of admission. Active but stable - Continue azathioprine - Continue Entyvio as an outpatient - Continue probiotics # History gastroesophageal reflux disease, present times admission. Stable - Continue proton pump inhibitor - Close observation # History of pulmonary emboli status post treatment with warfarin for 6 months - We gave 1 dose of heparin preoperatively. - Postoperatively DVT prophylaxis will be per orthopedic surgery. I agree with Lovenox 30 mg subcutaneous every 12 hours for 21 days. - Of note patient had a GI bleed on warfarin. However, her ulcerative colitis was not controlled at that time. Now her ulcerative colitis appears to be well controlled with Entyvia. Disposition: The patient will be discharged to [place] [facility] for further rehabilitation, due to debility and weakness from right hip surgery. I discussed the case with the patient's 2 daughters at bedside and they agree with this plan. I discussed case with Evens of physical therapy and he believes that the therapist to physical therapy team will be able to provide the same level of care that is being provided here at [facility] at this point. Exam Vital Signs (Last) Date Time Temp Pulse Resp B/P Pulse Ox O2 Delivery O2 Flow Rate FiO2 11/01/16 09:42 36.6 76 16 116/64 94 Room Air 10/30/16 11:03 1.50 Exam General: Patient is in no distress when she is lying still. However, with any movement she has increased pain in her right hip postoperatively. HEENT: Head is atraumatic and normocephalic. Eyes: Pupils are equally round and reactive to light and accommodation. Extraocular muscles are intact. Sclera are white, anicteric. Subconjunctival mucosa is pink. Ears and nose are unremarkable. Oropharynx: There is no mucosal lesions, there is no thrush, there is no pharyngitis. Oral mucosa is dry. Neck: Is supple, there are no nodes, or masses or tenderness. Chest: Is clear to auscultation and percussion. There are no rales, rhonchi, wheezes or rubs. Heart: Rate, rhythm is regular. There is no murmur, rub or gallop. Abdomen: Good bowel sounds are present. Abdomen is soft, nontender, no organomegaly or masses were appreciated. Extremities: Are well perfused. There is no edema, there is no cellulitis, no rash. The right hip dressing is clean dry and intact with no strikethrough bleeding. Patient is a regular pressure is much less painful with palpation or movement. Neurologic: There are no apparent focal neurological deficits. However, right lower extremity neurologic assessment could not be performed due to patient's pain with any movement. Cranial nerves II through XII are intact. There are no apparent sensory or motor deficits. Psychiatric: Patients mood is calm and she shows no sign of agitation. Genital: Deferred Rectal: Deferred Test 10/28/16 12:00 10/28/16 12:50 10/29/16 09:07 10/30/16 04:44 Hold Lopez Top Tube Received (Received) Urine Color Straw (YELLOW) Urine Appearance Hazy (CLEAR,HAZY) Urine pH 7.5 (5.0-8.0) Urine Specific [place] 1.015 (1.003-1.035) Urine Protein Negativemg/dL (NEG,TRACE) Urine Glucose (UA) Negativemg/dL (NEGATIVE) Urine Ketones Negativemg/dL (NEGATIVE) Urine Occult Blood Small (NEGATIVE) Urine Nitrite Negative (NEGATIVE) Urine Bilirubin Negative (NEGATIVE) Urine Urobilinogen Normalmg/dL (NORMAL) Urine Leukocyte Esterase Negative (NEGATIVE) Urine RBC 3-10/hpf (0-2) Urine WBC 0-5/hpf (0-5) Urine Epithelial Cells Occasional/hpf (NONE-MOD) Urine Crystals None seen (NONE SEEN) Urine Bacteria None/hpf (NONE-FEW) Urine Hyaline Casts None/lpf (NONE) Urine Granular Casts None seen (NONE SEEN) Urine Waxy Casts None seen (NONE SEEN) Urine Red Blood Cell Casts None seen (NONE SEEN) Urine White Blood Cell Casts None seen (NONE SEEN) Urine Mucus None seen (None Seen) Urine Trichomonas None seen (NONE SEEN) Urine Yeast None (NONE SEEN) Urinalysis Comment None Urine Culture Reflexed Not indicated Prothrombin Time 11.0sec (8.1-12.5) Prothromb Time International Ratio 1.03ratio Phosphorus Level 2.5mg/dL (2.5-4.9) Thyroid Stimulating Hormone (TSH) 1.180uIU/mL (0.450-4.500) Test 10/31/16 04:48 11/01/16 04:47 Total Bilirubin 0.5mg/dL (0.0-1.2) Aspartate Amino Transf (AST/SGOT) 11U/L (0-50) Alanine Aminotransferase (ALT/SGPT) 7U/L (0-32) Alkaline Phosphatase 59U/L (25-165) Total Protein 4.8g/dL (6.4-8.4) Albumin 2.5g/dL (3.4-5.0) White Blood Count 5.8th/mm3 (3.8-10.1) Red Blood Count 2.77mil/mm3 (3.90-5.20) Hemoglobin 8.7g/dL (12.0-15.6) Hematocrit 26.8% (35.0-46.0) Mean Corpuscular Volume 96.8fL (81-100) Mean Corpuscular Hemoglobin 31.4pg (27.0-35.0) Mean Corpuscular Hemoglobin Concent 32.5% (32.0-37.0) Red Cell Distribution Width 17.3% (12.3-15.4) Platelet Count 246bil/L (150-400) Neutrophils (%) (Auto) 62.2% (40-74) Lymphocytes (%) (Auto) 17.6% (14-46) Monocytes (%) (Auto) 11.4% (4-12) Eosinophils (%) (Auto) 7.4% (0-5) Basophils (%) (Auto) 1.2% (0-3) Sodium Level 139mEq/L (134-144) Potassium Level 4.7mEq/L (3.5-5.2) Chloride Level 108mEq/L (97-108) Carbon Dioxide Level 22mmol/L (18-29) Blood Urea Nitrogen 17mg/dL (8-27) Creatinine 0.79mg/dL (0.57-1.00) Estimat Glomerular Filtration Rate 98mL/min (>59) Glucose Level 96mg/dL (60-99) Calcium Level 9.3mg/dL (8.5-10.1) Magnesium Level 2.0mg/dL (1.6-2.6) Discharge Medications Discharge Medications ([Fentanyl]) 1 PATCH PATCH 1 PATCH TOPICAL Q3D Prescribed by: DELFINO HIGUERA MD Azathioprine (Azathioprine) 50 Mg Tablet 150 MG PO DAILY (Reported) Bifidobacterium Infantis (Align) 4 Mg Capsule 4 MG PO DAILY (Reported) Cholecalciferol (Vitamin D3) (Vitamin D3) 2,000 Unit Capsule 2,000 UNIT PO DAILY (Reported) Enoxaparin (Lovenox) 30 Mg/0.3 Ml Syringe 30 MG SUBQ Q12 Prescribed by: DELFINO HIGUERA MD Ferrous Gluconate (Ferrous Gluconate) 324 Mg Tab 324 MG PO DAILY (Reported) Omeprazole (Omeprazole) 20 Mg Capsule.dr 20 MG PO DAILY (Reported) Tetrahydrozoline HCl/Zn Sulf (Visine Allergy Relief Drop) 15 Ml Drops 15 ML OP DAILY (Reported) Vedolizumab (Entyvio) 300 Mg Vial 300 MG IV Every 8 weeks (Reported) As needed Acetaminophen (Acetaminophen) 325 Mg Capsule 650 MG PO Q8 hr. PRN PRN For Pain ( Reported) Clotrimazole/Betamethasone Dip (Lotrisone) 15 Gm Cream..g. 15 GM TOPICAL BID PRN PRN For Itching (Reported) Hydrocodone-Acetaminophen 5-325 mg (Hydrocodone-Acetaminophen 5-325 mg) 1 Each Tablet 1-2 TABLET PO Q4 PRN PRN For Mild Pain Prescribed by: DELFINO HIGUERA MD Loperamide (Loperamide) 2 Mg Capsule 2 MG PO Q4H PRN PRN For Diarrhea or Loose Stool (Reported) Miscellaneous Medications Vit C/E/Zn/Coppr/Lutein/Zeaxan (Preservision Areds 2 Softgel) 1 Each Capsule 1 EACH PO (Reported) Followup Plan Disposition: Patient is being transferred to [facility] for further rehabilitation today. Discharge Diet: Other (Pureed Diet) Discharge Activity: Outpatient Physical Therapy (Per Physical Therapy) Follow-up Provider: Hakeem Carcamo MD Follow-up with PCP in: 1 week Time spent Time spent on discharging this patient was greater than 35 minutes, over half of which was involved in counseling and coordination of care. Rodney Higuera MD Nov 02, 2016 00:18
== END 2016-11-01 16:29 | DRG 481 ==
LOC: SED 09:49 → OSC 13:23
PROVIDERS: ADMIT Internal Medicine Infectious Disease; ATTEND Internal Medicine Infectious Disease
PROC: 0QS606Z Reposition Right Upper Femur with Intramedullary Internal Fixation Device, Open Approach (ICD-10-PCS; principal; 2016-10-29 10:00)
DX: S72.141A Displaced intertrochanteric fracture of right femur, initial encounter for closed fracture (principal); F11.20 Opioid dependence, uncomplicated; K51.90 Ulcerative colitis, unspecified, without complications; Z91.81 History of falling; Z86.711 Personal history of pulmonary embolism; W01.0XXA Fall on same level from slipping, tripping and stumbling without subsequent striking against object, initial encounter; Y93.89 Activity, other specified; Y92.121 Bathroom in nursing home as the place of occurrence of the external cause; K21.9 Gastro-esophageal reflux disease without esophagitis; G89.29 Other chronic pain